=== PATIENT | male | born 1950 | race Caucasian/White ===

== ENCOUNTER 2017-04-27 07:58 | Outpatient (CLI) | payer MEDICARE ==
--- NOTE | 2017-04-27 15:39 | Ultrasound Report ---
LIMITED RETROPERITONEAL ULTRASOUND: 04/27/2017 CLINICAL INDICATION: Abdominal aortic aneurysm. COMPARISON: Report of previous ultrasound from [place], [place] dated 02/29/2016. TECHNIQUE: Real-time scanning was performed with apparel trimmings sales representative static images obtained. FINDINGS: The abdominal aorta measures 2.6 cm proximally, 2.8 cm in the mid portion, and 2.4 cm distally. The iliacs are normal in caliber. No free fluid is present. IMPRESSION: STABLE MILD AORTIC ECTASIA, WITHOUT FRANCESCO ANEURYSMAL DILATATION. TD: 04/27/2017 15:38
== END 2017-04-27 07:59 | disposition home or self-care (01) ==
LOC: DI 07:58
PROVIDERS: ATTEND Family Medicine
DX: I77.811 Abdominal aortic ectasia (principal)
CPT/HCPCS: 76775

== ENCOUNTER 2017-05-07 08:00 | Outpatient (CLI) | payer MEDICARE ==
[2017-05-07 13:37] LABS: HB2 TOTAL 15.4 g/dL; HEMOGLOBIN A1C 0.51 g/dL; HEMOGLOBIN A1C % 5.2 % (4.6-6.2)
[2017-05-07 13:42] LABS: ALBUMIN 4.5 g/dL (3.2-5.5); ALBUMIN/GLOBULIN RATIO 1.7 (1.0-2.2); ALKALINE PHOSPHATASE 41 IU/L (42-121); ALT ALANINE AMINOTRANSFERASE 39 IU/L (10-60); AST ASPARTATE AMINOTRANSFERASE 29 IU/L (10-42); BILIRUBIN,TOTAL 0.7 mg/dL (0.2-1.0); BUN - BLOOD UREA NITROGEN 26 mg/dL (6-20); CALCIUM 9.4 mg/dL (8.5-10.3); CARBON DIOXIDE - CO2 24 mmol/L (21-32); CHLORIDE 107 mmol/L (101-111); CHOL/HDL RATIO 3.6 (<5.0); CHOLESTEROL 141 mg/dL; CREATININE 1.1 mg/dL (0.6-1.2); GFR - MDRD 67 (>89); GLUCOSE 109 mg/dL (70-100); HDL CHOLESTEROL 39 mg/dL; LDL CHOLESTEROL,CALCULATED 67 mg/dL; LDL/HDL RATIO 1.7 (<3.6); SODIUM 140 mmol/L (135-145); TOTAL PROTEIN 7.2 g/dL (6.7-8.2); VLDL CHOLESTEROL 35 mg/dL
== END 2017-05-07 08:01 | disposition home or self-care (01) ==
LOC: LAB.WCP 08:00
PROVIDERS: ATTEND Family Medicine
DX: E78.5 Hyperlipidemia, unspecified (principal); R73.09 Other abnormal glucose; I10 Essential (primary) hypertension
CPT/HCPCS: 36415; 80053; 80061; 83036; 83721; 84443

== ENCOUNTER 2017-09-14 11:24 | Emergency (ER) | payer MEDICARE ==
[2017-09-14 11:35] VITALS: BP 145/88
--- NOTE | 2017-09-14 12:05 | ED Physician Documentation ---
PD HPI ANIMAL BITE - Stated complaint Stated Complaint: DOG BITE L FOOT - Chief complaint Chief Complaint: Wound - History obtained from History obtained from: Patient - History of Present Illness Location of injury(ies): Left foot Details of the event: Dog, Bite, Pet animal, Well appearing, Immunized, Provoked (his dog was in a fight with another dog and he tried to break it up, with resultant bite from his dog into left foot. Large laceration.) Timing - onset: Today Timing - details: Abrupt onset Improved by: Rest Worsened by: Moving, Palpating Associated symptoms: No: Weakness, Numbness Contributing factors: No: Immunocompromised Similar symptoms before: Has not had sx before Recently seen: Not recently seen Review of Systems Constitutional: denies: Fever Nose: denies: Rhinorrhea / runny nose, Congestion Respiratory: denies: Cough Musculoskeletal: reports: Back pain (chronic and is scheduled for surgery this coming Wednesday.) Neurologic: denies: Focal weakness, Numbness PD PAST MEDICAL HISTORY - Past Medical History Past Medical History: No Cardiovascular: None Respiratory: None Neuro: None Endocrine/Autoimmune: None Musculoskeletal: Chronic back pain - Past Surgical History Past Surgical History: No - Present Medications Home Medications: Ambulatory Orders Medication Instructions Recorded Confirmed Amox/Clav 875/125 [Augmentin] 1 each PO BID #14 tablet 09/14/17 - Allergies Allergies/Adverse Reactions: Allergies Allergy/AdvReac Type Severity Reaction Status Date / Time No Known Drug Allergies Allergy Verified 09/14/17 11:34 - Social History Does the pt smoke?: No Smoking Status: Never smoker Does the pt drink ETOH?: No Does the pt have substance abuse?: No - Immunizations Immunizations are current?: Yes - POLST Patient has POLST: No PD ED PE NORMAL - Vitals Vital signs reviewed: Yes - General General: Alert and oriented X 3, No acute distress, Well developed/nourished - Derm Derm: Normal color, Warm and dry - Extremities Extremities: Other (left foot dorsally with large 5 cm lac over lateral MTs area. Also one lateral left foot 3 cm. Both to fatty layer/full thickness skin. But no injury seen of tendons. He can flex/ext toes and I can feel the tendons still intact in base of wound. ) - Neuro Neuro: Alert and oriented X 3, No motor deficit, No sensory deficit Results - Vitals Vitals: Vital Signs - 24 hr 09/14/17 11:32 Temperature 36.1 C L Heart Rate 81 Respiratory 18 Rate Blood Pressure 145/88 H O2 Saturation 99 Oxygen O2 Source Room air - Rads (name of study) left foot Radiology: Prelim report reviewed (small specks calcified between 3rd/4th MTs, consider bone injury from bite. No transverse fracture per se. ), EMP read contemporaneously Procedures - Laceration (location) left foot Length in cm: 8 Wound type: Irregular, Into subcut fat, Clean. No: Into muscle Neurovascular status: Sensory intact, Motor intact, Vascular intact (venous bleeding from the wound) Tendon involvement: Tendon intact. No: Tendon Injury Anesthesia: Lidocaine 2% with epi, Volume - enter cc (10) Wound Preparation: Irrigated copiously NS, Wound explored, To the base, Wound edges modified. No: FB identified Deep layer closure: Vicryl, size #-0 - enter number (4), # sutures - enter number (6) Skin layer closure: Nylon, Running, Size #-0 - enter number (4), Sutures - enter # (many) Other: Patient tolerated well, No complications, Neurovascular intact, Dressing applied, Other (augmentin given) Complexity: Intermediate PD MEDICAL DECISION MAKING - ED course Complexity details: considered differential (large tear laceration of foot, took awhile for cleaning and suturing. He will need to be gentle with minimal walking. He has back pain and less ROM there and I think crutches would worsen his back pains. ), d/w patient - Sepsis Event Vital Signs: Vital Signs - 24 hr 09/14/17 11:32 Temperature 36.1 C L Heart Rate 81 Respiratory 18 Rate Blood Pressure 145/88 H O2 Saturation 99 Oxygen O2 Source Room air Departure - Departure Disposition: 01 Home, Self Care Clinical Impression: Dog bite of left foot Qualifiers: Encounter type: initial encounter Qualified Code(s): S91.352A - Open bite, left foot, initial encounter Condition: Stable Record reviewed to determine appropriate education?: Yes Instructions: ED Laceration Ext Sutr Stap Tape Follow-Up: Richard Cruz MD [Primary Care Provider] - Prescriptions: Amox/Clav 875/125 [Augmentin] 1 each PO BID #14 tablet Comments: It is okay to wash and shower. Clean off the wound twice a day with soap and water, or peroxide and water. Apply some antibiotic ointment to it to keep it moist. Also to watch for signs of infection such as purulence, redness or increasing pain. Return to your primary care or the ER at the specified time for suture removal. Suture removal 10-12 days. Augmentin twice daily to reduce chance of infection. Recheck if signs of infection. Minimal walking on the foot while its healing initially. You should be okay for your back surgery Wednesday. Discharge Date/Time: 09/14/17 14:27
[2017-09-14] MEDS ORDERED: ACETAMINOPHEN 325 MG TABLET PO STA (12:10)
[2017-09-14] MEDS ORDERED: AMOX/CLAV 875 MG/125 MG TABLET PO STA (12:10)
[2017-09-14] MEDS ORDERED: LIDOCAINE MPF 2%-EPI 1:200000 20 ML VIAL SUBQ ONE (12:11)
--- NOTE | 2017-09-14 12:47 | XRAY Report ---
Procedure Date: 09/14/2017 Accession Number: [id number] / [id number] Procedure: XR - Foot 3 View LT CPT Code: FULL RESULT: EXAM: LEFT FOOT RADIOGRAPHY EXAM DATE: 09/14/2017 12:13 PM. CLINICAL HISTORY: Dog bite left foot. COMPARISON: None. TECHNIQUE: 3 views. FINDINGS: Bones: Focal ossifications/fragments projecting over the interspace between the proximal aspects of the third and fourth metatarsals, along adjacent cortical margin. In this setting, these are suspicious for small displaced fracture fragments. No other definite fracture demonstrated. Joints: Normal. No subluxations. Soft Tissues: Lateral foot soft tissue deformity and swelling is consistent with the history of soft tissue injury. No definite radiopaque foreign body. IMPRESSION: 1. Ossifications projecting between and along the proximal third and fourth metatarsals are suspicious for small displaced fracture fragments in this clinical setting an would suggest open fracture given the nature of the injury. 2. Lateral foot soft tissue swelling/injury. [facility]
== END 2017-09-14 14:27 | disposition home or self-care (01) ==
LOC: ED 11:24
DX: S91.352A Open bite, left foot, initial encounter (principal); W54.0XXA Bitten by dog, initial encounter
CPT/HCPCS: 12034; 73630; 99283; A9270

== ENCOUNTER 2017-09-30 08:00 | Outpatient (CLI) | payer MEDICARE ==
[2017-09-30 18:49] LABS: BASOPHILS # (AUTO) 0.1 10^3/uL (0.0-0.1); BASOPHILS % (AUTO) 0.8 %; EOSINOPHILS # (AUTO) 0.2 10^3/uL (0.0-0.7); EOSINOPHILS % (AUTO) 1.6 %; HGB - HEMOGLOBIN 12.2 g/dL (14.0-18.0); LYMPHOCYTES # (AUTO) 2.1 10^3/uL (1.5-3.5); LYMPHOCYTES % (AUTO) 19.2 %; MEAN CORPUSCULAR HEMOGLOBIN 29.7 pg (27.0-31.0); MEAN CORPUSCULAR HGB CONC 33.8 g/dL (32.0-36.0); MEAN CORPUSCULAR VOLUME 88.1 fL (80.0-94.0); MEAN PLATELET VOLUME 9.2 fL (7.4-11.4); MONOCYTES # (AUTO) 0.9 10^3/uL (0.0-1.0); MONOCYTES % (AUTO) 8.2 %; NEUTROPHILS # (AUTO) 7.8 10^3/uL (1.5-6.6); NEUTROPHILS % (AUTO) 70.2 %; PLT - PLATELET COUNT 419 10^3/uL (130-450); RED BLOOD COUNT 4.11 10^6/uL (4.70-6.10); RED CELL DISTRIBUTION WIDTH 12.8 % (12.0-15.0); WHITE BLOOD COUNT 11.1 x10^3/uL (4.8-10.8)
== END 2017-09-30 08:01 | disposition home or self-care (01) ==
LOC: LAB.WCP 08:00
PROVIDERS: ATTEND Family Medicine
DX: L08.9 Local infection of the skin and subcutaneous tissue, unspecified (principal)
CPT/HCPCS: 36415; 85025; 85651

== ENCOUNTER 2017-10-02 14:29 | Outpatient (CLI) | payer MEDICARE ==
[2017-10-02] MEDS ORDERED: GADOBUTROL 10 MMOL/10 ML VIAL ONE (14:55)
[2017-10-02] MEDS ORDERED: GADOBUTROL 10 MMOL/10 ML VIAL IVP ONE (15:43)
--- NOTE | 2017-10-02 17:13 | MRI Report ---
Procedure Date: 10/02/2017 Accession Number: [id number] / [id number] Procedure: MRI - Foot LT W/WO CPT Code: FULL RESULT: EXAM: LEFT MIDFOOT/FOREFOOT MRI WITHOUT AND WITH CONTRAST EXAM DATE: 10/02/2017 03:57 PM. CLINICAL HISTORY: Status post dog bite to the left foot. Left foot infection. COMPARISON: FOOT 3 VIEW LT 09/14/2017. TECHNIQUE: Multiplanar, multisequence T1-weighted and fluid-sensitive sequences of the midfoot/forefoot before and after administration of intravenous contrast. IV contrast: 10 cc Gadavist. Other: None. FINDINGS: Some images are degraded due to patient-related motion artifact. There is an approximately 6.2 cm proximal to distal by 4.6 cm medial to lateral by 2 cm dorsal to plantar nonenhancing subcutaneous collection at the dorsal aspect of the midfoot/forefoot. The collection is hyperintense on the T2-weighted images and isointense to slightly hyperintense on the T1-weighted images. There are a few small foci of gas within the collection. There is a puncture wound at the dorsal aspect of the midfoot/forefoot. The collection extends to the dorsal surface of the proximal third metatarsal bone. There is an approximately 1.9 x 0.8 x 0.6 cm area of subcortical marrow edema and enhancement at the dorsal central aspect of the proximal third metatarsal. There is also focal cortical defect at the dorsal proximal aspect of the third metatarsal. There is diffuse subcutaneous edema, swelling, and enhancement at the dorsal aspect of the midfoot and forefoot. Mild edema and enhancement within the extensor digitorum brevis and dorsal intraosseous muscle. Ligaments: The visualized intertarsal, intermetatarsal, and tarsometatarsal ligaments are intact. This includes the Lisfranc ligament. The visualized collateral ligaments are intact. Tendons: The flexor and extensor tendons are unremarkable. Other: No effusions. The visualized portion of the tarsal tunnel is unremarkable. No intermetatarsal bursitis. IMPRESSION: 1. An approximately 6.2 x 4.6 x 2 cm subcutaneous collection at the dorsal aspect of the midfoot/forefoot most concerning for an abscess or an infected hematoma. There are multiple foci of gas within the collection. The collection extends from the dorsal surface of the proximal third metatarsal. There is a focal cortical defect at the dorsal proximal aspect of the third metatarsal which may represent a fracture from dog bite injury or erosion from osteomyelitis. There is a 1.9 x 0.8 x 0.6 cm area of subcortical marrow edema and enhancement at the dorsal-central aspect of the proximal third metatarsal which may represent bone contusion and/or osteomyelitis. 2. Diffuse subcutaneous edema, swelling, and enhancement at the dorsal aspect of the midfoot and forefoot most suggestive of cellulitis. 3. Mild edema and enhancement within the extensor digitorum brevis and dorsal interosseous muscles which may represent inflammatory or infectious myositis. [facility] MUSCULOSKELETAL RADIOLOGY SECTION The above findings were discussed with Radha Hines by Dr. Roger Delcid at 17:13 hrs on 10/02/17.
== END 2017-10-02 14:30 | disposition home or self-care (01) ==
LOC: DI 14:29
PROVIDERS: ATTEND Family Medicine
DX: L08.9 Local infection of the skin and subcutaneous tissue, unspecified (principal)

== ENCOUNTER 2017-10-02 18:53 | Inpatient (IN) | payer MEDICARE ==
[2017-10-02] MEDS ORDERED: VANCOMYCIN INJ 2 GM in SODIUM CHLORIDE 0.9% 500 ML IV STA (19:01)
[2017-10-02] MEDS ORDERED: AMPICILLIN/SULBACTAM 3 GM in SODIUM CHLORIDE 0.9% MINIBAG 100 ML IV STA (19:01)
--- NOTE | 2017-10-02 19:22 | ED Physician Documentation ---
PD HPI LOWER EXT INJURY - Stated complaint Stated Complaint: FOOT PX - Chief complaint Chief Complaint: Ext Problem - History obtained from History obtained from: Patient - History of Present Illness PD HPI LOW EXT INJURY LOCATION: Left (He had a dog bite on the top of the left foot on October 17, he was seen here and sutured and placed on Augmentin. He developed signs of infection was seen in the office and switched to doxycycline and also had Rocephin. He had an x-ray a few days ago showing potential osteomyelitis of the third metatarsal, and also white count of 11 and a sed rate of 35. He had an MRI today showing a 6.2 x 4.6 x 2 cm subcutaneous fluid collection of the dorsal foot concerning for abscess or infected hematoma and evidence of osteomyelitis in the third metatarsal. He was sent here for further evaluation, treatment, IV antibiotics, and admission.) Review of Systems Ten Systems: 10 systems reviewed and negative Constitutional: denies: Fever, Chills Throat: reports: Reviewed and negative Cardiac: reports: Reviewed and negative Respiratory: reports: Reviewed and negative PD PAST MEDICAL HISTORY - Past Medical History Cardiovascular: None Respiratory: None Neuro: None Endocrine/Autoimmune: None Musculoskeletal: Chronic back pain - Past Surgical History Past Surgical History: No - Allergies Allergies/Adverse Reactions: Allergies Allergy/AdvReac Type Severity Reaction Status Date / Time No Known Drug Allergies Allergy Verified 10/02/17 18:58 - Social History Does the pt smoke?: No Smoking Status: Never smoker Does the pt drink ETOH?: No Does the pt have substance abuse?: No - Family History Family history: reports: Non contributory - Immunizations Immunizations are current?: Yes - POLST Patient has POLST: No PD ED PE NORMAL - Vitals Vital signs reviewed: Yes - General General: Alert and oriented X 3, No acute distress - HEENT HEENT: PERRL, EOMI - Neck Neck: Supple, no meningeal sign, No bony TTP - Cardiac Cardiac: RRR, No murmur - Respiratory Respiratory: No respiratory distress, Clear bilaterally - Abdomen Abdomen: Normal bowel sounds, Soft, Non tender - Back Back: No CVA TTP, No spinal TTP - Derm Derm: Normal color, Warm and dry - Extremities Extremities: No deformity, Other (There is a jagged macerated wound on the top of the left foot, there is a little suture material still in place which was removed during examination. He was prepped and 2 mL of bloody pus was aspirated and sent for culture. The entirety of the foot is edematous. It is not insensate and he does not have pain out of proportion to examination. In fact he declines pain medication initially.) - Neuro Neuro: Alert and oriented X 3, Normal speech Results - Vitals Vitals: Vital Signs - 24 hr 10/02/17 18:56 Temperature 36.1 C L Heart Rate 74 Respiratory 18 Rate Blood Pressure 129/72 O2 Saturation 99 Oxygen O2 Source Room air - Labs Labs: Microbiology 10/02/17 19:20 Wound Culture - Preliminary Foot - Left Laboratory Tests 10/02/17 10/02/17 10/02/17 19:02 19:02 19:18 WBC 13.4 H RBC 4.10 L Hgb 12.4 L Hct 35.7 L MCV 87.2 MCH 30.3 MCHC 34.7 RDW 13.4 Plt Count 415 MPV 8.4 Neut # (Auto) 9.3 H Lymph # (Auto) 2.9 [place] # (Auto) 0.8 Eos # (Auto) 0.2 Baso # (Auto) 0.2 H Absolute Nucleated RBC 0.01 Nucleated RBC % 0.1 ESR PT 13.2 H INR 1.2 Sodium Potassium Chloride Carbon Dioxide Anion Gap BUN Creatinine Estimated GFR (MDRD) Glucose Glycated Hemoglobin 5.3 Estim Average Glucose 105 H Calcium Total Bilirubin AST ALT Alkaline Phosphatase Total Protein Albumin Globulin Albumin/Globulin Ratio Lipase 10/02/17 10/02/17 19:18 19:18 WBC RBC Hgb Hct MCV MCH MCHC RDW Plt Count MPV Neut # (Auto) Lymph # (Auto) [place] # (Auto) Eos # (Auto) Baso # (Auto) Absolute Nucleated RBC Nucleated RBC % ESR 17 PT INR Sodium 139 Potassium 3.6 Chloride 105 Carbon Dioxide 23 Anion Gap 11.0 BUN 27 H Creatinine 1.1 Estimated GFR (MDRD) 66 L Glucose 163 H Glycated Hemoglobin Estim Average Glucose Calcium 9.2 Total Bilirubin 0.7 AST 30 ALT 42 Alkaline Phosphatase 116 Total Protein 7.6 Albumin 3.8 Globulin 3.8 Albumin/Globulin Ratio 1.0 Lipase 21 L PD MEDICAL DECISION MAKING - ED course ED course: Case was discussed by phone with the on-call orthopedist, Dr. Reaves who defers to medicine for admission and agrees with Unasyn and vancomycin to start. She agrees with me aspirating the wound to try to get some culture data. She will see him and likely taken to the OR tomorrow, n.p.o. after midnight. Call to the hospitalist for admission at 7:20 PM. - Sepsis Event Vital Signs: Vital Signs - 24 hr 10/02/17 18:56 Temperature 36.1 C L Heart Rate 74 Respiratory 18 Rate Blood Pressure 129/72 O2 Saturation 99 Oxygen O2 Source Room air Departure - Departure Disposition: [facility] DC/Xfer Clinical Impression: Osteomyelitis of foot, left, acute, Foot abscess, left Dog bite of left foot Qualifiers: Encounter type: initial encounter Qualified Code(s): S91.352A - Open bite, left foot, initial encounter Condition: Stable Discharge Date/Time: 10/02/17 21:04
[2017-10-02 19:26] LABS: BASOPHILS # (AUTO) 0.2 10^3/uL (0.0-0.1); BASOPHILS % (AUTO) 1.2 %; EOSINOPHILS # (AUTO) 0.2 10^3/uL (0.0-0.7); EOSINOPHILS % (AUTO) 1.7 %; HGB - HEMOGLOBIN 12.4 g/dL (14.0-18.0); LYMPHOCYTES # (AUTO) 2.9 10^3/uL (1.5-3.5); MEAN CORPUSCULAR HEMOGLOBIN 30.3 pg (27.0-31.0); MEAN CORPUSCULAR HGB CONC 34.7 g/dL (32.0-36.0); MEAN CORPUSCULAR VOLUME 87.2 fL (80.0-94.0); MEAN PLATELET VOLUME 8.4 fL (7.4-11.4); MONOCYTES # (AUTO) 0.8 10^3/uL (0.0-1.0); MONOCYTES % (AUTO) 5.7 %; NEUTROPHILS # (AUTO) 9.3 10^3/uL (1.5-6.6); NEUTROPHILS % (AUTO) 69.4 %; PLT - PLATELET COUNT 415 10^3/uL (130-450); RED CELL DISTRIBUTION WIDTH 13.4 % (12.0-15.0); WHITE BLOOD COUNT 13.4 x10^3/uL (4.8-10.8)
[2017-10-02] MEDS ORDERED: KETOROLAC 60 MG/2 ML VIAL IVP STA (19:33)
[2017-10-02 19:43] LABS: ALBUMIN 3.8 g/dL (3.2-5.5); ALKALINE PHOSPHATASE 116 IU/L (42-121); ALT ALANINE AMINOTRANSFERASE 42 IU/L (10-60); AST ASPARTATE AMINOTRANSFERASE 30 IU/L (10-42); BILIRUBIN,TOTAL 0.7 mg/dL (0.2-1.0); BUN - BLOOD UREA NITROGEN 27 mg/dL (6-20); CALCIUM 9.2 mg/dL (8.5-10.3); CARBON DIOXIDE - CO2 23 mmol/L (21-32); CHLORIDE 105 mmol/L (101-111); CREATININE 1.1 mg/dL (0.6-1.2); GFR - MDRD 66 (>89); GLUCOSE 163 mg/dL (70-100); LIPASE 21 U/L (22-51); SODIUM 139 mmol/L (135-145); TOTAL PROTEIN 7.6 g/dL (6.7-8.2)
[2017-10-02] MEDS ORDERED: ACETAMINOPHEN 325 MG TABLET PO PRN (19:57)
[2017-10-02] MEDS ORDERED: ONDANSETRON 4 MG/2 ML VIAL IVP PRN (19:57)
[2017-10-02] MEDS ORDERED: TEMAZEPAM 15 MG CAPSULE PO PRN (19:57)
[2017-10-02 20:25] LABS: HEMOGLOBIN A1C 0.45 g/dL; HEMOGLOBIN A1C % 5.3 % (4.6-6.2)
[2017-10-02 20:31] LABS: INR 1.2 (0.8-1.2); PT - PROTHROMBIN TIME 13.2 secs (9.9-12.6)
--- NOTE | 2017-10-02 21:02 | XRAY Report ---
Procedure Date: 10/02/2017 Accession Number: [id number] / [id number] Procedure: XR - Chest 2 View X-Ray CPT Code: 85519 FULL RESULT: EXAM: CHEST RADIOGRAPHY EXAM DATE: 10/02/2017 08:20 PM. CLINICAL HISTORY: Pre-op, osteomyelitis. COMPARISON: None. TECHNIQUE: 2 views. FINDINGS: Lungs/Pleura: No focal opacities evident. No pleural effusion. No pneumothorax. Normal volumes. Mediastinum: Normal heart size. Mild aortic tortuosity. Other: None. IMPRESSION: Unremarkable chest radiographs. [facility]
[2017-10-02 21:34] LABS: CRP - C-REACTIVE PROTEIN < 1.0 mg/dL (0-1.0)
[2017-10-02] MEDS: NS W/20 MEQ KCL 1,000 ML IV SCH (22:22)
[2017-10-02] MEDS: SODIUM CHLORIDE FLUSH 0.9% 10 ML SYRINGE IVP SCH (23:49)
[2017-10-03] MEDS: HYDROcod/ACETAM 5/325 MG TABLET PO PRN ×4 (01:03→19:50)
[2017-10-03] MEDS ORDERED: NAPROXEN 500 MG PO PRN (01:46)
[2017-10-03] MEDS: AMPICILLIN/SULBACTAM 3 GM in SODIUM CHLORIDE 0.9% MINIBAG 100 ML IV SCH ×4 (01:50→19:44)
--- NOTE | 2017-10-03 02:48 | HISTORY & PHYSICAL EXAMINATION ---
DATE OF SERVICE: 10/02/2017 Physician: Sofiya Diaz MD HISTORY OF PRESENT ILLNESS: This is a 67-year-old white male with a history of borderline diabetes with fatty liver, on metformin for about 1 year, history of hypertension on treatment, and history of recent spinal surgery for which he took baclofen and nonsteroidal anti-inflammatory medications. The patient presents with an abnormal MRI of the foot showing an abscess and osteomyelitis. The patient's foot problem began approximately 2-3 weeks ago when he was bitten by his own dog when he was trying to break up a fight between 3 of his 4 dogs by pulling on the dog's leg. The dog reacted by putting the patient's entire foot in it's mouth and biting both the dorsal and ventral surfaces. The patient was seen in this emergency room and had stabilization. He required 15 sutures on the top, 18 on the bottom of the foot, and was started on Augmentin for a course of treatment. He went to see a doctor as an outpatient for suture removal, and he was told that the wound was not healing well and that there was an abnormal smell. He was given IV antibiotics and told to return. On the second day, this was similar, and he received IV antibiotics and told to return. On the third day, this was similar. He received IV antibiotics, and an MRI was ordered which was done today. In the time between the dog bite and today's MRI, he has undergone a successful spinal surgery for lumbar disk disease. He required screws and rods and was on perioperative doxycycline for that surgery. He has had good recovery from that. The patient denies any fevers from the time of the dog bite, or chills. He had preop clearance for the low back surgery done approximately 2 months ago , including a stress test and other cardiac evaluation, and this was normal. PAST MEDICAL HISTORY 1. Borderline diabetes but on metformin treatment. 2. Hypertension, on antihypertensives. 3. Recent LS spine surgery. FAMILY HISTORY: Strong family history of heart disease in both of his parents, and his younger brother at the age of 49 6 months ago from an [place]. He has 4 children, all girls; they are healthy. No other diseases are inherited. SOCIAL HISTORY: He lives with his and is her caregiver, as she suffered a stroke. He lives with his 1 daughter and son-in-law. He is a retired program officer, retired 3 years ago. The patient stopped smoking over 30 years ago. He drinks 1 beer a day. He uses 1 cannabis a day. No other illicit drug use. ALLERGIES: NONE. MEDICATIONS None are listed at home, but by his report, he states that he takes: 1. Either carvedilol or metoprolol, he is not sure. 2. Metformin, unknown dose daily. 3. Two baby aspirin daily. 4. Nonsteroidal medicines p.r.n. pain. 5. Another pain medication for his back p.r.n. REVIEW OF SYSTEMS: Comprehensive review of systems was performed, and the pertinent positives are in the HPI, the rest are negative. PHYSICAL EXAMINATION GENERAL: White male in no distress. VITAL SIGNS: Blood pressure 136/69, pulse of 63, in sinus rhythm, afebrile, room air saturation 99%. HEENT: Unremarkable. Oral mucosa is moist. NECK: Without JVD or carotid bruits. CHEST: Clear. HEART: Sounds normal. He does have increased AP diameter. ABDOMEN: Soft with positive bowel sounds. Nontender. No organomegaly. EXTREMITIES: No clubbing, cyanosis, edema. The left forefoot is in a wrap bandage, and the left foot second, third, and fourth toes have bruising but are normal to sensation and have normal motor strength. NEUROLOGIC: Intact. LABORATORY STUDIES: Normal electrolytes. Normal BUN and creatinine. A1c is 5.3. Normal liver tests. CRP is less than 1. INR normal at 1.2. White blood count 13.4, which is up from the ER visit when it was 11. Hemoglobin is 12.4. Platelet count normal at 415. ELECTROCARDIOGRAM: Sinus bradycardia at a rate of 57, atypical right bundle branch block, no acute ST or T changes. There is no old EKG available for comparison. IMAGING: Chest x-ray was unremarkable. IMPRESSION/DIAGNOSES 1. Osteomyelitis, by outpatient MRI of his foot done today. 2. Abscess of left foot, at the site of the recent traumatic injury. 3. Open bite wound of the left foot, from a dog bite. 4. Borderline diabetes with normal A1c, on Metformin. 5. History of hypertension, on meds. PLAN The patient's revised cardiac risk index is very low, especially since he recently underwent major surgery and had preoperative testing. We will place the patient on IV fluids, n.p.o. is planned at midnight, and the Orthopedic surgeon plans to take him to surgery. The exact surgical procedure was not described to me, as to whether there will be debridement or requiring an amputation of the bone. Start carb-controlled diet, fingerstick glucose checks , and sliding scale Insulin coverage, stop metformin, as he may need CT imaging with dye. Continue with his blood pressure medications, continue with pain medications. The wound was opened, and a culture was taken in the emergency room, await cultures. Will now begin empiric IV antibiotics using Unasyn and Vancomycin, which were chosen by the ER doctor in discussion with the Orthopedic doctor. Deep venous thrombosis prophylaxis: SCDs. CODE STATUS: FULL CODE. ATTESTATION: The patient is expected to be discharged or transferred to another facility within 96 hours: Yes. TD: 10/02/2017 23:20 SAHRA
[2017-10-03] MEDS: BACLOFEN 10 MG TABLET PO SCH ×3 (05:36→21:28)
[2017-10-03 06:34] LABS: BASOPHILS # (AUTO) 0.1 10^3/uL (0.0-0.1); BASOPHILS % (AUTO) 1.2 %; EOSINOPHILS # (AUTO) 0.2 10^3/uL (0.0-0.7); HGB - HEMOGLOBIN 11.3 g/dL (14.0-18.0); LYMPHOCYTES # (AUTO) 2.3 10^3/uL (1.5-3.5); LYMPHOCYTES % (AUTO) 23.7 %; MEAN CORPUSCULAR HEMOGLOBIN 30.3 pg (27.0-31.0); MEAN CORPUSCULAR HGB CONC 34.9 g/dL (32.0-36.0); MEAN PLATELET VOLUME 8.3 fL (7.4-11.4); MONOCYTES # (AUTO) 0.7 10^3/uL (0.0-1.0); MONOCYTES % (AUTO) 7.3 %; NEUTROPHILS # (AUTO) 6.5 10^3/uL (1.5-6.6); NEUTROPHILS % (AUTO) 65.8 %; PLT - PLATELET COUNT 302 10^3/uL (130-450); RED BLOOD COUNT 3.72 10^6/uL (4.70-6.10); RED CELL DISTRIBUTION WIDTH 12.9 % (12.0-15.0); WHITE BLOOD COUNT 9.9 x10^3/uL (4.8-10.8)
[2017-10-03] MEDS: INSULIN REGULAR HUMAN 100 UNIT/1 ML 10 ML MDV SUBQ SCH ×2 (06:46→13:02)
[2017-10-03] MEDS: SODIUM CHLORIDE FLUSH 0.9% 10 ML SYRINGE IVP PRN (06:48)
[2017-10-03] MEDS: SODIUM CHLORIDE FLUSH 0.9% 10 ML SYRINGE IVP SCH ×2 (06:48→17:22)
[2017-10-03] MEDS: PANTOPRAZOLE 40 MG VIAL IVP SCH (06:48)
[2017-10-03 06:51] LABS: CALCIUM 8.6 mg/dL (8.5-10.3); CREATININE 1.2 mg/dL (0.6-1.2)
[2017-10-03] MEDS: LOSARTAN 50 MG TABLET PO SCH (08:35)
[2017-10-03] MEDS: hydroCHLOROthiazide 25 MG TABLET PO SCH (08:35)
[2017-10-03] MEDS: POLYETHYLENE GLYCOL 3350 17 GM PACKET PO SCH (08:35)
[2017-10-03] MEDS: amLODIPine 5 MG TABLET PO SCH ×2 (08:35→20:40)
[2017-10-03] MEDS: CARVEDILOL 3.125 MG TABLET PO SCH ×2 (08:35→20:40)
[2017-10-03] MEDS ORDERED: amLODIPine 5 MG TABLET PO SCH (09:00)
[2017-10-03] MEDS ORDERED: NON FORMULARY MED (Carvedilol [Carvedilol] 6.25 MG) PO SCH ×2 (09:00)
[2017-10-03] MEDS ORDERED: LOSARTAN POTASSIUM 100 MG PO SCH ×2 (09:00)
[2017-10-03 10:41] LABS: VANCOMYCIN,RANDOM 9.2 ug/mL
[2017-10-03] MEDS: VANCOMYCIN INJ 1 GM, VANCOMYCIN INJ 250 MG in SODIUM CHLORIDE 0.9% 250 ML IV SCH ×2 (10:56→21:29)
--- NOTE | 2017-10-03 12:29 | CONSULTATION NOTE ---
Referring Provider Name of Referring Provider:: Alec Consult Date: 10/03/17 Chief Complaint - Chief Complaint Chief Complaint: Infected dog bite dorsum of left foot History of Present Illness - Admitted From Admitted From:: ER - History of Present Illness HPI Comment/Other: 67 year old male was bitten by a dog on October 17. He was sutured and placed on Augmentin. He had back surgery several days ago. He now presents to the ER with purulent drainage over the dorsum of his foot. He has had an MRI which demonstrates an abscess in his foot and questionable osteomyelitis in the third metatarsal. He is here today for orthopedic evaluation. History - Past Medical History Cardiovascular: reports: None Respiratory: reports: None Neuro: reports: None Endocrine/Autoimmune: reports: None GI: reports: Hiatal hernia : reports: None HEENT: reports: None Psych: reports: None Musculoskeletal: reports: Chronic back pain Derm: reports: None MRSA Hx?: No - Past Surgical History Ortho: reports: Knee replacement, Spine surgery - POLST Patient has POLST: No Meds/Allgy - Home Medications Home Medications: Ambulatory Orders Medication Instructions Recorded Confirmed Atorvastatin Calcium [Atorvastatin 40 mg PO QPM 10/02/17 10/03/17 Calcium] Baclofen [Baclofen] 10 mg PO BID PRN 10/02/17 10/03/17 Carvedilol [Carvedilol] 6.25 mg PO BID 10/02/17 10/03/17 Losartan Potassium [Losartan 100 mg PO DAILY 10/02/17 10/03/17 Potassium] Metformin HCl [Metformin HCl] 500 mg PO BIDWM 10/02/17 10/03/17 Naproxen [Naproxen] 500 mg PO BID 10/02/17 10/03/17 amLODIPine [Norvasc] 5 mg PO BID 10/02/17 10/03/17 hydroCHLOROthiazide 25 mg PO DAILY 10/02/17 10/03/17 [Hydrochlorothiazide] oxyCODONE [Roxicodone] 5 mg PO Q6HR PRN 10/02/17 10/03/17 Aspirin 162 mg PO DAILY 10/03/17 10/03/17 - Allergies Allergies/Adverse Reactions: Allergies Allergy/AdvReac Type Severity Reaction Status Date / Time No Known Drug Allergies Allergy Verified 10/02/17 18:58 Exam - Vital Signs Vital Signs: Vital Signs x48h Temp Pulse Resp BP Pulse Ox 10/03/17 07:51 36.8 C 67 18 144/83 H 97 - Physical Exam General Appearance: positive: No acute distress Peripheral Pulses: positive: Other (Unable to fully assess secondary to wound location. Foot is warm.) Extremities: positive: Other (Foot has a moderate amount of swelling present. There is a transverse wound that is open over the dorsum of the foot. The drainage from the wound is purulent. There is no deformity noted.) Conclusion/Plan - Diagnosis Diagnosis: Abscess left foot secondary to dog bite - plan is to take him to the OR and debride and irrigate the infection, apply a wound vac and IV antibiotics. The risks involved in the surgery have been explained including continued infection. - Lab Results Fish Bones: 10/03/17 06:19 10/03/17 06:19
[2017-10-03] MEDS ORDERED: VANCOMYCIN INJ 1.5 GM in SODIUM CHLORIDE 0.9% 500 ML IV SCH (14:00)
[2017-10-03] MEDS: NS W/20 MEQ KCL 1,000 ML IV SCH (15:52)
[2017-10-03] MEDS ORDERED: AMPICILLIN/SULBACTAM 3 GM in SODIUM CHLORIDE 0.9% MINIBAG 100 ML IV SCH (16:00)
--- NOTE | 2017-10-03 16:15 | PROVIDER PROGRESS NOTE ---
Subjective - Prog Note Date Prog Note Date: 10/03/17 Prog Note Time: 11:00 - Subjective Subjective: The patient says that his pain is improved and that he is nervous about his upcoming surgery. He denies any fevers or chills, shortness of breath or chest pain. Current Medications - Current Medications Current Medications: Active Medications Generic Name Dose Route Start Last Admin Trade Name Freq PRN Reason Stop Dose Admin Acetaminophen 650 mg 10/02/17 19:57 Tylenol PO Q4HR PRN Pain or Fever > 38C (100.4F) Hydrocodone Bitart/Acetaminophen 1 tab 10/02/17 19:57 10/03/17 12:11 [place] 5/325 PO 1 tab Q4HR PRN Administration Pain 5 to 7 Amlodipine Besylate 5 mg 10/03/17 09:00 10/03/17 08:35 Norvasc PO 5 mg BID CHINYERE Administration Baclofen 10 mg 10/03/17 06:00 10/03/17 14:28 Lioresal PO 10 mg TID CHINYERE Administration Carvedilol 6.25 mg 10/03/17 09:00 10/03/17 08:35 Coreg PO 6.25 mg BID CHINYERE Administration Hydrochlorothiazide 25 mg 10/03/17 09:00 10/03/17 08:35 Hydrodiuril PO 25 mg DAILY CHINYERE Administration Hydromorphone HCl 0.5 mg 10/02/17 19:57 Dilaudid Inj Syringe IVP Q2H PRN Pain 8 to 10 Potassium Chloride/Sodium Chloride 1,000 mls @ 75 mls/hr 10/02/17 20:00 10/03 15:52 Normal Saline 0.9% W/20 Meq Kcl IV 75 mls/hr .[id number] CHINYERE Administration Ampicillin Sodium/Sulbactam 100 mls @ 200 mls/hr 10/03/17 02:00 10/03/17 14: 53 Sodium 3 gm/ Sodium Chloride IV Infused Q6H CH[facility]YERE Infusion Vancomycin HCl 1 gm/ 280 mls @ 187 mls/hr 10/03/17 10:00 10/03/17 12:20 Vancomycin HCl 250 mg/ Sodium IV Infused Chloride Q12H CHINYERE Infusion Insulin Human Regular 1 - 5 unit 10/03/17 06:00 10/03/17 13:02 Novolin R SUBQ Not Given Q6HR CHINYERE Protocol Losartan Potassium 100 mg 10/03/17 09:00 10/03/17 08:35 Cozaar PO 100 mg DAILY CHINYERE Administration Naproxen 500 mg 10/03/17 02:16 Naprosyn PO BID PRN PAIN Ondansetron HCl 4 mg 10/02/17 19:57 Zofran Inj IVP Q6HR PRN Nausea / Vomiting Pantoprazole Sodium 40 mg 10/03/17 07:00 10/03/17 06:48 Protonix IVP 40 mg QDAC CHINYERE Administration Polyethylene Glycol 17 gm 10/03/17 09:00 10/03/17 08:35 Miralax PO Not Given DAILY CHINYERE Sodium Chloride 10 ml 10/02/17 19:57 10/03/17 06:48 Normal Saline Flush 0.9% IVP 10 ml PRN PRN Administration NEEDED PER PROVIDER ORDERS Sodium Chloride 10 ml 10/03/17 01:00 10/03/17 06:48 Normal Saline Flush 0.9% IVP 10 ml [id number] CHINYERE Administration Temazepam 15 mg 10/02/17 19:57 Restoril PO QPM PRN Insomnia Atorvastatin Calcium [Atorvastatin Calcium] 40 mg PO QPM 10/02/17 Baclofen [Baclofen] 10 mg PO BID PRN 10/02/17 Carvedilol [Carvedilol] 6.25 mg PO BID 10/02/17 Losartan Potassium [Losartan Potassium] 100 mg PO DAILY 10/02/17 Metformin HCl [Metformin HCl] 500 mg PO BIDWM 10/02/17 Naproxen [Naproxen] 500 mg PO BID 10/02/17 amLODIPine [Norvasc] 5 mg PO BID 10/02/17 hydroCHLOROthiazide [Hydrochlorothiazide] 25 mg PO DAILY 10/02/17 oxyCODONE [Roxicodone] 5 mg PO Q6HR PRN 10/02/17 Aspirin 162 mg PO DAILY 10/03/17 Objective - Vital Signs/Intake & Output Reviewed Vital Signs: Yes Vital Signs: Last Vital Signs Temp 36.8 C 10/03/17 07:51 Pulse 67 10/03/17 07:51 Resp 18 10/03/17 07:51 BP 144/83 H 10/03/17 07:51 Pulse Ox 97 10/03/17 07:51 Intake & Output: Intake & Output 09/30/17 10/01/17 10/02/17 10/03/17 23:59 23:59 23:59 23:59 Intake Total 900 1880 Output Total 1600 Balance 900 280 - Objective General Appearance: positive: No acute distress, Alert Eyes Bilateral: positive: Normal inspection, PERRL, EOMI, No lid inflammation, Conjunctivae nml, No scleral icterus ENT: positive: ENT inspection nml, Pharynx nml, No signs of dehydration Neck: positive: Nml inspection, Thyroid nml, No JVD, Trachea midline. negative : Thyromegaly Respiratory: positive: Chest non-tender, No respiratory distress, Breath sounds nml. negative: Wheezes, Rales, Rhonchi Cardiovascular: positive: Regular rate & rhythm, No murmur, No gallop Abdomen: positive: Non-tender, No organomegaly, Nml bowel sounds, No distention. negative: Guarding, Rebound Back: positive: Nml inspection. negative: CVA tenderness (R), CVA tenderness (L ) Skin: positive: Color nml, No rash, Warm, Dry. negative: Cyanosis Extremities: positive: Full ROM, Other (The patient has sutures and swelling to his right foot, To the sole and the dorsum) Neurologic/Psychiatric: positive: Oriented x3, CN's nml (2-12), Motor nml, Sensation nml, Mood/affect nml - Lab Results Fish Bones: 10/03/17 06:19 10/03/17 06:19 Other Labs: Lab Results x24hrs 10/03/17 10/03/17 10/03/17 Range/Units 11:11 10:20 06:19 WBC (4.8-10.8) x10^3/uL RBC (4.70-6.10) 10^6/uL Hgb (14.0-18.0) g/dL Hct (42.0-52.0) % MCV (80.0-94.0) fL MCH (27.0-31.0) pg MCHC (32.0-36.0) g/dL RDW (12.0-15.0) % Plt Count (130-450) 10^3/uL MPV (7.4-11.4) fL Neut # (Auto) (1.5-6.6) 10^3/uL Lymph # (Auto) (1.5-3.5) 10^3/uL [place] # (Auto) (0.0-1.0) 10^3/uL Eos # (Auto) (0.0-0.7) 10^3/uL Baso # (Auto) (0.0-0.1) 10^3/uL Absolute Nucleated RBC x10^3/uL Nucleated RBC % /100WBC Sodium (135-145) mmol/L Potassium (3.5-5.0) mmol/L Chloride (101-111) mmol/L Carbon Dioxide (21-32) mmol/L Anion Gap (6-13) BUN (6-20) mg/dL Creatinine (0.6-1.2) mg/dL Estimated GFR (MDRD) (>89) Glucose (70-100) mg/dL POC Whole Bld Glucose 100 94 (70 - 100) mg/dL Calcium (8.5-10.3) mg/dL Last Dose Date 10/02/17 Last Dose Time 2100 Random Vancomycin 9.2 ug/mL 10/03/17 10/03/17 Range/Units 06:19 06:19 WBC 9.9 (4.8-10.8) x10^3/uL RBC 3.72 L (4.70-6.10) 10^6/uL Hgb 11.3 L (14.0-18.0) g/dL Hct 32.4 L (42.0-52.0) % MCV 87.0 (80.0-94.0) fL MCH 30.3 (27.0-31.0) pg MCHC 34.9 (32.0-36.0) g/dL RDW 12.9 (12.0-15.0) % Plt Count 302 (130-450) 10^3/uL MPV 8.3 (7.4-11.4) fL Neut # (Auto) 6.5 (1.5-6.6) 10^3/uL Lymph # (Auto) 2.3 (1.5-3.5) 10^3/uL [place] # (Auto) 0.7 (0.0-1.0) 10^3/uL Eos # (Auto) 0.2 (0.0-0.7) 10^3/uL Baso # (Auto) 0.1 (0.0-0.1) 10^3/uL Absolute Nucleated RBC 0.00 x10^3/uL Nucleated RBC % 0.0 /100WBC Sodium 140 (135-145) mmol/L Potassium 3.7 (3.5-5.0) mmol/L Chloride 107 (101-111) mmol/L Carbon Dioxide 25 (21-32) mmol/L Anion Gap 8.0 (6-13) BUN 25 H (6-20) mg/dL Creatinine 1.2 (0.6-1.2) mg/dL Estimated GFR (MDRD) 60 L (>89) Glucose 103 H (70-100) mg/dL POC Whole Bld Glucose (70 - 100) mg/dL Calcium 8.6 (8.5-10.3) mg/dL Last Dose Date Last Dose Time Random Vancomycin ug/mL - Diagnostic Imaging Diagnostic Imaging Results: positive: Final report reviewed Diagnostic Imaging Comments: EXAM: Foot 3 View LT DATE: 09/30/2017 2:04 PM CLINICAL HISTORY: FOOT INFECTION COMPARISON: 09/14/2017. TECHNIQUE: 3 views. FINDINGS: Fracture with fragmentation of the base of the third metatarsal and questionably fracture of the fourth metatarsal is redemonstrated. Given history of dog bite as the etiology combined with current history of ongoing foot infection this is suspicious for osteomyelitis. IMPRESSION: Findings suspicious for osteomyelitis as described. Recommend evaluation by MRI for consideration of IV antibiotic therapy with or without surgical management. This was discussed over the phone at 3:[address] Cruz. EXAM: LEFT MIDFOOT/FOREFOOT MRI WITHOUT AND WITH CONTRAST EXAM DATE: 10/02/2017 03:57 PM. CLINICAL HISTORY: Status post dog bite to the left foot. Left foot infection. COMPARISON: FOOT 3 VIEW LT 09/14/2017. TECHNIQUE: Multiplanar, multisequence T1-weighted and fluid-sensitive sequences of the midfoot/forefoot before and after administration of intravenous contrast. IV contrast: 10 cc Gadavist. Other: None. FINDINGS: Some images are degraded due to patient-related motion artifact. There is an approximately 6.2 cm proximal to distal by 4.6 cm medial to lateral by 2 cm dorsal to plantar nonenhancing subcutaneous collection at the dorsal aspect of the midfoot/forefoot. The collection is hyperintense on the T2-weighted images and isointense to slightly hyperintense on the T1-weighted images. There are a few small foci of gas within the collection. There is a puncture wound at the dorsal aspect of the midfoot/forefoot. The collection extends to the dorsal surface of the proximal third metatarsal bone. There is an approximately 1.9 x 0.8 x 0.6 cm area of subcortical marrow edema and enhancement at the dorsal central aspect of the proximal third metatarsal. There is also focal cortical defect at the dorsal proximal aspect of the third metatarsal. There is diffuse subcutaneous edema, swelling, and enhancement at the dorsal aspect of the midfoot and forefoot. Mild edema and enhancement within the extensor digitorum brevis and dorsal intraosseous muscle. Ligaments: The visualized intertarsal, intermetatarsal, and tarsometatarsal ligaments are intact. This includes the Lisfranc ligament. The visualized collateral ligaments are intact. Tendons: The flexor and extensor tendons are unremarkable. Other: No effusions. The visualized portion of the tarsal tunnel is unremarkable. No intermetatarsal bursitis. IMPRESSION: 1. An approximately 6.2 x 4.6 x 2 cm subcutaneous collection at the dorsal aspect of the midfoot/forefoot most concerning for an abscess or an infected hematoma. There are multiple foci of gas within the collection. The collection extends from the dorsal surface of the proximal third metatarsal. There is a focal cortical defect at the dorsal proximal aspect of the third metatarsal which may represent a fracture from dog bite injury or erosion from osteomyelitis. There is a 1.9 x 0.8 x 0.6 cm area of subcortical marrow edema and enhancement at the dorsal-central aspect of the proximal third metatarsal which may represent bone contusion and/or osteomyelitis. 2. Diffuse subcutaneous edema, swelling, and enhancement at the dorsal aspect of the midfoot and forefoot most suggestive of cellulitis. 3. Mild edema and enhancement within the extensor digitorum brevis and dorsal interosseous muscles which may represent inflammatory or infectious myositis. EXAM: CHEST RADIOGRAPHY EXAM DATE: 10/02/2017 08:20 PM. CLINICAL HISTORY: Pre-op, osteomyelitis. COMPARISON: None. TECHNIQUE: 2 views. FINDINGS: Lungs/Pleura: No focal opacities evident. No pleural effusion. No pneumothorax. Normal volumes. Mediastinum: Normal heart size. Mild aortic tortuosity. Other: None. IMPRESSION: Unremarkable chest radiographs. ABX Reporting Has patient been on IV antibiotics over the past 48 hours?: Yes Assessment/Plan - Problem List (1) Cellulitis of foot, left Impression: According to Dr. Reaves, the orthopedic surgeon who is attending to Mr. Bailey, there is some question as to whether or not there is osteoarthritis osteomyelitis in the foot. Despite this, given that there is at least a fracture in the wound has been infected for a lengthy amount of time, we will treat the patient with 6 weeks of IV antibiotics following the surgical debridement today. Accordingly, I will ask that the anesthesiologist place a PICC line during the patient's surgery today, if possible. (2) Hypertension Impression: The patient has a history of hypertension and takes amlodipine, carvedilol, and losartan at home. We will continue these while he is inpatient. (3) Hyperlipidemia Impression: The patient has a history of hyperlipidemia and takes atorvastatin at home. We will continue this while he is inpatient. (4) Type 2 diabetes mellitus Impression: The patient has what he terms as "borderline diabetes" and takes metformin, 500 mg twice a day at home. I will cover him with a sliding scale, place him on a carb controlled diet, and check his hemoglobin A1c while he is in the hospital but otherwise we will not make any changes and will not start the metformin while he is hospitalized.
[2017-10-03] MEDS ORDERED: VANCOMYCIN PER PHARMACY 0.1 GM in SODIUM CHLORIDE 0.9% 250 ML IV SCH (17:00)
[2017-10-03] MEDS ORDERED: LACTATED RINGERS 1,000 ML IV ONE ×2 (17:05→18:44)
[2017-10-03 17:07] LABS: HB2 TOTAL 11.4 g/dL; HEMOGLOBIN A1C 0.38 g/dL; HEMOGLOBIN A1C % 5.2 % (4.6-6.2)
[2017-10-03] MEDS ORDERED: PROPOFOL 200 MG/20 ML VIAL IVP ONE (17:30)
[2017-10-03] MEDS ORDERED: fentaNYL 100 MCG/2 ML VIAL IVP ONE (17:30)
[2017-10-03] MEDS ORDERED: MIDAZOLAM 2 MG/2 ML VIAL IVP ONE (17:30)
[2017-10-03] MEDS ORDERED: ONDANSETRON 4 MG/2 ML VIAL IVP ONE (17:30)
[2017-10-03] MEDS ORDERED: KETOROLAC 30 MG/ML VIAL IVP ONE (17:30)
[2017-10-03] MEDS ORDERED: DEXAMETHASONE 4 MG/ML VIAL IVP ONE (17:30)
[2017-10-03] MEDS ORDERED: LIDOCAINE-MPF 2% 5 ML VIAL IM ONE (17:30)
--- NOTE | 2017-10-03 18:06 | OPERATIVE REPORT ---
Operative Report - General Admit Date: 10/02/17 Procedure Date: 10/03/17 Planned Procedure: debridement and irrigation left foot abscess, application of wound vac Pre-Op Diagnosis: dog bite left foot with abscess and osteomyelitis Procedure Performed: Debridement and irrigation left foot, application of wound vac left foot Operative procedure in detail: The patient was taken to the operating room and general anesthesia was induced. A longitudinal incision was placed over the third metatarsal. The transverse wound that was already present was explored. There was approximately 10 cc of purulent material that was removed. Cultures were obtained. The wound was digitally explored. A currette was inserted into the bone of the third metatarsal. No purulent material was noted around the fracture site. The skin was debrided. The SpotMeulse irrigation system was used to irrigate the patient's wound. Four liters of NS was used. The wound vac was then put into place. We loosely closed the skin with a vertical mattress suture of 4.0 nylon. The wound vac motor was attached and no leaks were noted. The patient was then awakened and returned to the in stable condition. All sponge and needle counts were correct x 2. - Procedure Note Primary Surgeon: Jean Paul Anesthesia Technique: General LMA Pathology: Cultures were obtained Estimated Blood Loss (mL): 10 Drain/Tube Type: Other (Wound vac) Complications: None
[2017-10-03] MEDS: HYDROmorphone 1 MG/ML CARPUJECT ONE ×2 (18:18→18:25)
[2017-10-03] MEDS: HYDROmorphone 0.5 MG/0.5 ML SYRINGE IVP PRN ×2 (18:20→22:59)
[2017-10-03] MEDS: fentaNYL 100 MCG/2 ML VIAL ONE ×4 (18:31→18:48)
[2017-10-03] MEDS: INSULIN ASPART 300 UNIT/3 ML PEN SUBQ SCH ×2 (20:00→21:45)
[2017-10-03] MEDS: NAPROXEN 250 MG TABLET PO PRN (22:59)
[2017-10-04] MEDS: SODIUM CHLORIDE FLUSH 0.9% 10 ML SYRINGE IVP SCH ×3 (00:34→17:09)
[2017-10-04] MEDS: AMPICILLIN/SULBACTAM 3 GM in SODIUM CHLORIDE 0.9% MINIBAG 100 ML IV SCH ×4 (01:53→19:06)
[2017-10-04 05:53] LABS: BASOPHILS % (AUTO) 0.2 %; LYMPHOCYTES # (AUTO) 1.3 10^3/uL (1.5-3.5); LYMPHOCYTES % (AUTO) 9.2 %; MEAN CORPUSCULAR HEMOGLOBIN 30.1 pg (27.0-31.0); MEAN CORPUSCULAR HGB CONC 34.4 g/dL (32.0-36.0); MEAN CORPUSCULAR VOLUME 87.6 fL (80.0-94.0); MEAN PLATELET VOLUME 8.4 fL (7.4-11.4); MONOCYTES # (AUTO) 0.5 10^3/uL (0.0-1.0); MONOCYTES % (AUTO) 3.9 %; NEUTROPHILS # (AUTO) 12.1 10^3/uL (1.5-6.6); NEUTROPHILS % (AUTO) 86.7 %; PLT - PLATELET COUNT 338 10^3/uL (130-450); RED BLOOD COUNT 3.98 10^6/uL (4.70-6.10); RED CELL DISTRIBUTION WIDTH 13.1 % (12.0-15.0); WHITE BLOOD COUNT 13.9 x10^3/uL (4.8-10.8)
[2017-10-04 06:06] LABS: CALCIUM 8.7 mg/dL (8.5-10.3); CREATININE 1.1 mg/dL (0.6-1.2)
[2017-10-04] MEDS ORDERED: SODIUM CHLORIDE FLUSH 0.9% 10 ML SYRINGE ONE (06:28)
[2017-10-04] MEDS: PANTOPRAZOLE 40 MG VIAL IVP SCH (06:33)
[2017-10-04] MEDS: SODIUM CHLORIDE FLUSH 0.9% 10 ML SYRINGE IVP PRN (06:33)
[2017-10-04] MEDS: BACLOFEN 10 MG TABLET PO SCH ×3 (06:33→21:04)
[2017-10-04] MEDS: POLYETHYLENE GLYCOL 3350 17 GM PACKET PO SCH (07:30)
[2017-10-04] MEDS: INSULIN ASPART 300 UNIT/3 ML PEN SUBQ SCH ×4 (07:30→21:04)
[2017-10-04] MEDS: LOSARTAN 50 MG TABLET PO SCH (08:33)
[2017-10-04] MEDS: CARVEDILOL 3.125 MG TABLET PO SCH ×2 (08:33→20:00)
[2017-10-04] MEDS: amLODIPine 5 MG TABLET PO SCH ×2 (08:34→20:00)
[2017-10-04] MEDS: hydroCHLOROthiazide 25 MG TABLET PO SCH (09:28)
[2017-10-04 09:31] LABS: BILIRUBIN,URINE NEGATIVE (NEGATIVE); GLUCOSE, URINE (UA) NEGATIVE (NEGATIVE); KETONES,URINE (UA) NEGATIVE (NEGATIVE); LEUKOCYTE ESTERASE, URINE NEGATIVE (NEGATIVE); NITRITE,URINE NEGATIVE (NEGATIVE); OCCULT BLOOD,URINE NEGATIVE (NEGATIVE); PROTEIN,URINE NEGATIVE (NEGATIVE); UROBILINOGEN,URINE 0.2 (NORMAL) E.U./dL (NORMAL)
[2017-10-04 09:34] LABS: CLARITY,URINE CLEAR (CLEAR)
[2017-10-04] MEDS: VANCOMYCIN INJ 1 GM, VANCOMYCIN INJ 250 MG in SODIUM CHLORIDE 0.9% 250 ML IV SCH ×2 (10:24→21:49)
--- NOTE | 2017-10-04 11:59 | PROVIDER PROGRESS NOTE ---
Subjective - Prog Note Date Prog Note Date: 10/04/17 Prog Note Time: 11:55 - Subjective Pt reports feeling: Improved Subjective: Patient says the pain in his foot is extremely well-managed. He denies any significant pain, shortness of breath, fevers or chills. He is eating and has not yet moved his bowels since his surgery. Current Medications - Current Medications Current Medications: Active Medications Generic Name Dose Route Start Last Admin Trade Name Freq PRN Reason Stop Dose Admin Acetaminophen 650 mg 10/02/17 19:57 Tylenol PO Q4HR PRN Pain or Fever > 38C (100.4F) Hydrocodone Bitart/Acetaminophen 1 tab 10/02/17 19:57 10/03/17 19:50 [place] 5/325 PO 1 tab Q4HR PRN Administration Pain 5 to 7 Amlodipine Besylate 5 mg 10/03/17 09:00 10/04/17 08:34 Norvasc PO 5 mg BID CH[facility]ERE Administration Baclofen 10 mg 10/03/17 06:00 10/04/17 06:33 Lioresal PO 10 mg TID CH[facility]ERE Administration Carvedilol 6.25 mg 10/03/17 09:00 10/04/17 08:33 Coreg PO 6.25 mg BID CH[facility]ERE Administration Hydrochlorothiazide 25 mg 10/03/17 09:00 10/04/17 09:28 Hydrodiuril PO 25 mg DAILY [facility]ERE Administration Hydromorphone HCl 0.5 mg 10/02/17 19:57 10/03/17 22:59 Dilaudid Inj Syringe IVP 0.5 mg Q2H PRN Administration Pain 8 to 10 Potassium Chloride/Sodium Chloride 1,000 mls @ 75 mls/hr 10/02/17 20:00 10/04 09:33 Normal Saline 0.9% W/20 Meq Kcl IV Infused .[id number] [facility] Infusion Ampicillin Sodium/Sulbactam 100 mls @ 200 mls/hr 10/03/17 02:00 10/04/17 09: 34 Sodium 3 gm/ Sodium Chloride IV Infused Q6H [facility] Infusion Vancomycin HCl 1 gm/ 280 mls @ 187 mls/hr 10/03/17 10:00 10/04/17 10:24 Vancomycin HCl 250 mg/ Sodium IV 187 mls/hr Chloride Q12H [facility] Administration Insulin Aspart 1 - 9 unit 10/03/17 17:00 10/04/17 07:30 Novolog SUBQ Not Given 0800,1200,1700,2100 [facility] Protocol Losartan Potassium 100 mg 10/03/17 09:00 10/04/17 08:33 Cozaar PO 100 mg DAILY [facility] Administration Naproxen 500 mg 10/03/17 02:16 10/03/17 22:59 Naprosyn PO 500 mg BID PRN Administration PAIN Ondansetron HCl 4 mg 10/02/17 19:57 Zofran Inj IVP Q6HR PRN Nausea / Vomiting Pantoprazole Sodium 40 mg 10/03/17 07:00 10/04/17 06:33 Protonix IVP 40 mg QDAC [facility] Administration Polyethylene Glycol 17 gm 10/03/17 09:00 10/04/17 07:30 Miralax PO 17 gm DAILY [facility] Administration Sodium Chloride 10 ml 10/02/17 19:57 10/04/17 06:33 Normal Saline Flush 0.9% IVP 10 ml PRN PRN Administration NEEDED PER PROVIDER ORDERS Sodium Chloride 10 ml 10/03/17 01:00 10/04/17 09:29 Normal Saline Flush 0.9% IVP Not Given 0100,0900,1700 [facility] Temazepam 15 mg 10/02/17 19:57 Restoril PO QPM PRN Insomnia Atorvastatin Calcium [Atorvastatin Calcium] 40 mg PO QPM 10/02/17 Baclofen [Baclofen] 10 mg PO BID PRN 10/02/17 Carvedilol [Carvedilol] 6.25 mg PO BID 10/02/17 Losartan Potassium [Losartan Potassium] 100 mg PO DAILY 10/02/17 Metformin HCl [Metformin HCl] 500 mg PO BIDWM 10/02/17 Naproxen [Naproxen] 500 mg PO BID 10/02/17 amLODIPine [Norvasc] 5 mg PO BID 10/02/17 hydroCHLOROthiazide [Hydrochlorothiazide] 25 mg PO DAILY 10/02/17 oxyCODONE [Roxicodone] 5 mg PO Q6HR PRN 10/02/17 Aspirin 162 mg PO DAILY 10/03/17 Objective - Vital Signs/Intake & Output Reviewed Vital Signs: Yes Vital Signs: Vital Signs x48h Temp Pulse Resp BP Pulse Ox 10/04/17 08:00 36.9 C 74 18 144/71 H 97 Intake & Output: Intake & Output 10/01/17 10/02/17 10/03/17 10/04/17 23:59 23:59 23:59 23:59 Intake Total 900 6640 1636 Output Total 1999 875 Balance 900 631 761 - Objective General Appearance: positive: No acute distress, Alert Eyes Bilateral: positive: Normal inspection, PERRL, EOMI, No lid inflammation, Conjunctivae nml, No scleral icterus ENT: positive: ENT inspection nml, Pharynx nml, No signs of dehydration Neck: positive: Nml inspection, Thyroid nml, No JVD, Trachea midline. negative : Thyromegaly Respiratory: positive: Chest non-tender, No respiratory distress, Breath sounds nml. negative: Wheezes, Rales, Rhonchi Cardiovascular: positive: Regular rate & rhythm, No murmur, No gallop Abdomen: positive: Non-tender, No organomegaly, Nml bowel sounds, No distention. negative: Guarding, Rebound Back: positive: Nml inspection. negative: CVA tenderness (R), CVA tenderness (L ) Skin: positive: Color nml, No rash, Warm, Dry. negative: Cyanosis Extremities: positive: Full ROM, No pedal edema, Other (Patient is status post left foot surgical debridement with wound VAC placement. His toes are warm and he has capillary refill of less than 3 seconds distal to the surgical site.). negative: Calf tenderness, Joint swelling - Lab Results Fish Bones: 10/04/17 05:37 10/04/17 05:37 Other Labs: Lab Results x24hrs 10/04/17 10/04/17 10/04/17 Range/Units 11:38 07:45 07:26 WBC (4.8-10.8) x10^3/uL RBC (4.70-6.10) 10^6/uL Hgb (14.0-18.0) g/dL Hct (42.0-52.0) % MCV (80.0-94.0) fL MCH (27.0-31.0) pg MCHC (32.0-36.0) g/dL RDW (12.0-15.0) % Plt Count (130-450) 10^3/uL MPV (7.4-11.4) fL Neut # (Auto) (1.5-6.6) 10^3/uL Lymph # (Auto) (1.5-3.5) 10^3/uL [place] # (Auto) (0.0-1.0) 10^3/uL Eos # (Auto) (0.0-0.7) 10^3/uL Baso # (Auto) (0.0-0.1) 10^3/uL Absolute Nucleated RBC x10^3/uL Nucleated RBC % /100WBC Sodium (135-145) mmol/L Potassium (3.5-5.0) mmol/L Chloride (101-111) mmol/L Carbon Dioxide (21-32) mmol/L Anion Gap (6-13) BUN (6-20) mg/dL Creatinine (0.6-1.2) mg/dL Estimated GFR (MDRD) (>89) Glucose (70-100) mg/dL POC Whole Bld Glucose 126 H 120 H (70 - 100) mg/dL Glycated Hemoglobin (4.6-6.2) % Estim Average Glucose (70-100) Calcium (8.5-10.3) mg/dL Urine Color YELLOW Urine Clarity CLEAR (CLEAR) Urine pH 6.0 (5.0-7.5) PH Ur Specific [place] 1.010 (1.002-1.030) Urine Protein NEGATIVE (NEGATIVE) mg/dL Urine Glucose (UA) NEGATIVE (NEGATIVE) mg/dL Urine Ketones NEGATIVE (NEGATIVE) mg/dL Urine Occult Blood NEGATIVE (NEGATIVE) Urine Nitrite NEGATIVE (NEGATIVE) Urine Bilirubin NEGATIVE (NEGATIVE) Urine Urobilinogen 0.2 (NORMAL) (NORMAL) E.U./dL Ur Leukocyte Esterase NEGATIVE (NEGATIVE) Ur Microscopic Review NOT INDICATED Urine Culture Comments NOT INDICATED 10/04/17 10/04/17 10/03/17 Range/Units 05:37 05:37 21:39 WBC 13.9 H (4.8-10.8) x10^3/uL RBC 3.98 L (4.70-6.10) 10^6/uL Hgb 12.0 L (14.0-18.0) g/dL Hct 34.9 L (42.0-52.0) % MCV 87.6 (80.0-94.0) fL MCH 30.1 (27.0-31.0) pg MCHC 34.4 (32.0-36.0) g/dL RDW 13.1 (12.0-15.0) % Plt Count 338 (130-450) 10^3/uL MPV 8.4 (7.4-11.4) fL Neut # (Auto) 12.1 H (1.5-6.6) 10^3/uL Lymph # (Auto) 1.3 L (1.5-3.5) 10^3/uL [place] # (Auto) 0.5 (0.0-1.0) 10^3/uL Eos # (Auto) 0.0 (0.0-0.7) 10^3/uL Baso # (Auto) 0.0 (0.0-0.1) 10^3/uL Absolute Nucleated RBC 0.01 x10^3/uL Nucleated RBC % 0.1 /100WBC Sodium 139 (135-145) mmol/L Potassium 4.1 (3.5-5.0) mmol/L Chloride 107 (101-111) mmol/L Carbon Dioxide 24 (21-32) mmol/L Anion Gap 8.0 (6-13) BUN 17 (6-20) mg/dL Creatinine 1.1 (0.6-1.2) mg/dL Estimated GFR (MDRD) 66 L (>89) Glucose 130 H (70-100) mg/dL POC Whole Bld Glucose 149 H (70 - 100) mg/dL Glycated Hemoglobin (4.6-6.2) % Estim Average Glucose (70-100) Calcium 8.7 (8.5-10.3) mg/dL Urine Color Urine Clarity (CLEAR) Urine pH (5.0-7.5) PH Ur Specific [place] (1.002-1.030) Urine Protein (NEGATIVE) mg/dL Urine Glucose (UA) (NEGATIVE) mg/dL Urine Ketones (NEGATIVE) mg/dL Urine Occult Blood (NEGATIVE) Urine Nitrite (NEGATIVE) Urine Bilirubin (NEGATIVE) Urine Urobilinogen (NORMAL) E.U./dL Ur Leukocyte Esterase (NEGATIVE) Ur Microscopic Review Urine Culture Comments 10/03/17 10/03/17 Range/Units 19:34 06:19 WBC (4.8-10.8) x10^3/uL RBC (4.70-6.10) 10^6/uL Hgb (14.0-18.0) g/dL Hct (42.0-52.0) % MCV (80.0-94.0) fL MCH (27.0-31.0) pg MCHC (32.0-36.0) g/dL RDW (12.0-15.0) % Plt Count (130-450) 10^3/uL MPV (7.4-11.4) fL Neut # (Auto) (1.5-6.6) 10^3/uL Lymph # (Auto) (1.5-3.5) 10^3/uL [place] # (Auto) (0.0-1.0) 10^3/uL Eos # (Auto) (0.0-0.7) 10^3/uL Baso # (Auto) (0.0-0.1) 10^3/uL Absolute Nucleated RBC x10^3/uL Nucleated RBC % /100WBC Sodium (135-145) mmol/L Potassium (3.5-5.0) mmol/L Chloride (101-111) mmol/L Carbon Dioxide (21-32) mmol/L Anion Gap (6-13) BUN (6-20) mg/dL Creatinine (0.6-1.2) mg/dL Estimated GFR (MDRD) (>89) Glucose (70-100) mg/dL POC Whole Bld Glucose 98 (70 - 100) mg/dL Glycated Hemoglobin 5.2 (4.6-6.2) % Estim Average Glucose 103 H (70-100) Calcium (8.5-10.3) mg/dL Urine Color Urine Clarity (CLEAR) Urine pH (5.0-7.5) PH Ur Specific [place] (1.002-1.030) Urine Protein (NEGATIVE) mg/dL Urine Glucose (UA) (NEGATIVE) mg/dL Urine Ketones (NEGATIVE) mg/dL Urine Occult Blood (NEGATIVE) Urine Nitrite (NEGATIVE) Urine Bilirubin (NEGATIVE) Urine Urobilinogen (NORMAL) E.U./dL Ur Leukocyte Esterase (NEGATIVE) Ur Microscopic Review Urine Culture Comments - Diagnostic Imaging Diagnostic Imaging Results: positive: Final report reviewed Diagnostic Imaging Comments: EXAM: Foot 3 View LT DATE: 09/30/2017 2:04 PM CLINICAL HISTORY: FOOT INFECTION COMPARISON: 09/14/2017. TECHNIQUE: 3 views. FINDINGS: Fracture with fragmentation of the base of the third metatarsal and questionably fracture of the fourth metatarsal is redemonstrated. Given history of dog bite as the etiology combined with current history of ongoing foot infection this is suspicious for osteomyelitis. IMPRESSION: Findings suspicious for osteomyelitis as described. Recommend evaluation by MRI for consideration of IV antibiotic therapy with or without surgical management. This was discussed over the phone at 3:[address] Cruz. EXAM: LEFT MIDFOOT/FOREFOOT MRI WITHOUT AND WITH CONTRAST EXAM DATE: 10/02/2017 03:57 PM. CLINICAL HISTORY: Status post dog bite to the left foot. Left foot infection. COMPARISON: FOOT 3 VIEW LT 09/14/2017. TECHNIQUE: Multiplanar, multisequence T1-weighted and fluid-sensitive sequences of the midfoot/forefoot before and after administration of intravenous contrast. IV contrast: 10 cc Gadavist. Other: None. FINDINGS: Some images are degraded due to patient-related motion artifact. There is an approximately 6.2 cm proximal to distal by 4.6 cm medial to lateral by 2 cm dorsal to plantar nonenhancing subcutaneous collection at the dorsal aspect of the midfoot/forefoot. The collection is hyperintense on the T2-weighted images and isointense to slightly hyperintense on the T1-weighted images. There are a few small foci of gas within the collection. There is a puncture wound at the dorsal aspect of the midfoot/forefoot. The collection extends to the dorsal surface of the proximal third metatarsal bone. There is an approximately 1.9 x 0.8 x 0.6 cm area of subcortical marrow edema and enhancement at the dorsal central aspect of the proximal third metatarsal. There is also focal cortical defect at the dorsal proximal aspect of the third metatarsal. There is diffuse subcutaneous edema, swelling, and enhancement at the dorsal aspect of the midfoot and forefoot. Mild edema and enhancement within the extensor digitorum brevis and dorsal intraosseous muscle. Ligaments: The visualized intertarsal, intermetatarsal, and tarsometatarsal ligaments are intact. This includes the Lisfranc ligament. The visualized collateral ligaments are intact. Tendons: The flexor and extensor tendons are unremarkable. Other: No effusions. The visualized portion of the tarsal tunnel is unremarkable. No intermetatarsal bursitis. IMPRESSION: 1. An approximately 6.2 x 4.6 x 2 cm subcutaneous collection at the dorsal aspect of the midfoot/forefoot most concerning for an abscess or an infected hematoma. There are multiple foci of gas within the collection. The collection extends from the dorsal surface of the proximal third metatarsal. There is a focal cortical defect at the dorsal proximal aspect of the third metatarsal which may represent a fracture from dog bite injury or erosion from osteomyelitis. There is a 1.9 x 0.8 x 0.6 cm area of subcortical marrow edema and enhancement at the dorsal-central aspect of the proximal third metatarsal which may represent bone contusion and/or osteomyelitis. 2. Diffuse subcutaneous edema, swelling, and enhancement at the dorsal aspect of the midfoot and forefoot most suggestive of cellulitis. 3. Mild edema and enhancement within the extensor digitorum brevis and dorsal interosseous muscles which may represent inflammatory or infectious myositis. EXAM: CHEST RADIOGRAPHY EXAM DATE: 10/02/2017 08:20 PM. CLINICAL HISTORY: Pre-op, osteomyelitis. COMPARISON: None. TECHNIQUE: 2 views. FINDINGS: Lungs/Pleura: No focal opacities evident. No pleural effusion. No pneumothorax. Normal volumes. Mediastinum: Normal heart size. Mild aortic tortuosity. Other: None. IMPRESSION: Unremarkable chest radiographs. ABX Reporting Has patient been on IV antibiotics over the past 48 hours?: Yes Assessment/Plan - Problem List (1) Cellulitis of foot, left Impression: According to Dr. Reaves, the orthopedic surgeon who is attending to Mr. Bailey, there is some question as to whether or not there is osteoarthritis osteomyelitis in the foot. Despite this, given that there is at least a fracture in the wound has been infected for a lengthy amount of time, we will treat the patient with 6 weeks of IV antibiotics following the surgical debridement today. Patient had a PICC line placed this morning and we are working on arranging for home IV antibiotics at this time. (2) Hypertension Impression: The patient has a history of hypertension and takes amlodipine, carvedilol, and losartan at home, and we have continued these while he is inpatient. His blood pressure has been slightly elevated at times but this certainly may be attributed to the pain he has had. (3) Hyperlipidemia Impression: The patient has a history of hyperlipidemia and takes atorvastatin at home. We will continue this while he is inpatient. (4) Type 2 diabetes mellitus Impression: The patient has what he describes as borderline diabetes. He takes metformin, 500 mg twice a day which we have not continued while he is been inpatient. Hemoglobin A1c showed glycolated hemoglobin of 5.2 indicating very good glycemic control. We will cover him with sliding scale insulin while he is inpatient.
--- NOTE | 2017-10-04 12:56 | XRAY Report ---
Procedure Date: 10/04/2017 Accession Number: [id number] / [id number] Procedure: XR - Chest for Line Placement CPT Code: FULL RESULT: EXAM: Chest for Line Placement DATE: 10/04/2017 10:54 AM CLINICAL HISTORY: post picc line placement COMPARISON: 10/02/2017. TECHNIQUE: Single view of the chest. FINDINGS: A right PICC terminates in the SVC. The cardiomediastinal silhouette is unremarkable. Lungs are clear. There is no pleural effusion or pneumothorax. IMPRESSION: Interval placement of a right PICC terminating in the SVC. RADIA
[2017-10-04] MEDS ORDERED: SODIUM CHLORIDE 0.9% 1,000 ML IV ONE (13:38)
[2017-10-04] MEDS: HYDROcod/ACETAM 5/325 MG TABLET PO PRN ×4 (13:42→23:58)
[2017-10-04] MEDS: NAPROXEN 250 MG TABLET PO PRN ×2 (13:43→14:30)
[2017-10-04] MEDS: NS W/20 MEQ KCL 1,000 ML IV SCH ×2 (13:45→14:30)
--- NOTE | 2017-10-04 14:29 | PROVIDER PROGRESS NOTE ---
Subjective - Prog Note Date Prog Note Date: 10/04/17 - Subjective Pt reports feeling: Improved Objective - Vital Signs/Intake & Output Vital Signs: Vital Signs x48h Temp Pulse Resp BP Pulse Ox 10/04/17 08:00 36.9 C 74 18 144/71 H 97 Intake & Output: Intake & Output 10/01/17 10/02/17 10/03/17 10/04/17 23:59 23:59 23:59 23:59 Intake Total 900 2710 2486 Output Total 1999 1826 Balance 900 032 661 - Objective General Appearance: positive: No acute distress Eyes Bilateral: positive: Normal inspection Extremities: positive: Other (Wound vac with very little drainage. No leaks.) - Lab Results Fish Bones: 10/04/17 05:37 10/04/17 05:37 Other Labs: Lab Results x24hrs 10/04/17 10/04/17 10/04/17 Range/Units 11:38 07:45 07:26 WBC (4.8-10.8) x10^3/uL RBC (4.70-6.10) 10^6/uL Hgb (14.0-18.0) g/dL Hct (42.0-52.0) % MCV (80.0-94.0) fL MCH (27.0-31.0) pg MCHC (32.0-36.0) g/dL RDW (12.0-15.0) % Plt Count (130-450) 10^3/uL MPV (7.4-11.4) fL Neut # (Auto) (1.5-6.6) 10^3/uL Lymph # (Auto) (1.5-3.5) 10^3/uL [place] # (Auto) (0.0-1.0) 10^3/uL Eos # (Auto) (0.0-0.7) 10^3/uL Baso # (Auto) (0.0-0.1) 10^3/uL Absolute Nucleated RBC x10^3/uL Nucleated RBC % /100WBC Sodium (135-145) mmol/L Potassium (3.5-5.0) mmol/L Chloride (101-111) mmol/L Carbon Dioxide (21-32) mmol/L Anion Gap (6-13) BUN (6-20) mg/dL Creatinine (0.6-1.2) mg/dL Estimated GFR (MDRD) (>89) Glucose (70-100) mg/dL POC Whole Bld Glucose 126 H 120 H (70 - 100) mg/dL Glycated Hemoglobin (4.6-6.2) % Estim Average Glucose (70-100) Calcium (8.5-10.3) mg/dL Urine Color YELLOW Urine Clarity CLEAR (CLEAR) Urine pH 6.0 (5.0-7.5) PH Ur Specific [place] 1.010 (1.002-1.030) Urine Protein NEGATIVE (NEGATIVE) mg/dL Urine Glucose (UA) NEGATIVE (NEGATIVE) mg/dL Urine Ketones NEGATIVE (NEGATIVE) mg/dL Urine Occult Blood NEGATIVE (NEGATIVE) Urine Nitrite NEGATIVE (NEGATIVE) Urine Bilirubin NEGATIVE (NEGATIVE) Urine Urobilinogen 0.2 (NORMAL) (NORMAL) E.U./dL Ur Leukocyte Esterase NEGATIVE (NEGATIVE) Ur Microscopic Review NOT INDICATED Urine Culture Comments NOT INDICATED 10/04/17 10/04/17 10/03/17 Range/Units 05:37 05:37 21:39 WBC 13.9 H (4.8-10.8) x10^3/uL RBC 3.98 L (4.70-6.10) 10^6/uL Hgb 12.0 L (14.0-18.0) g/dL Hct 34.9 L (42.0-52.0) % MCV 87.6 (80.0-94.0) fL MCH 30.1 (27.0-31.0) pg MCHC 34.4 (32.0-36.0) g/dL RDW 13.1 (12.0-15.0) % Plt Count 338 (130-450) 10^3/uL MPV 8.4 (7.4-11.4) fL Neut # (Auto) 12.1 H (1.5-6.6) 10^3/uL Lymph # (Auto) 1.3 L (1.5-3.5) 10^3/uL [place] # (Auto) 0.5 (0.0-1.0) 10^3/uL Eos # (Auto) 0.0 (0.0-0.7) 10^3/uL Baso # (Auto) 0.0 (0.0-0.1) 10^3/uL Absolute Nucleated RBC 0.01 x10^3/uL Nucleated RBC % 0.1 /100WBC Sodium 139 (135-145) mmol/L Potassium 4.1 (3.5-5.0) mmol/L Chloride 107 (101-111) mmol/L Carbon Dioxide 24 (21-32) mmol/L Anion Gap 8.0 (6-13) BUN 17 (6-20) mg/dL Creatinine 1.1 (0.6-1.2) mg/dL Estimated GFR (MDRD) 66 L (>89) Glucose 130 H (70-100) mg/dL POC Whole Bld Glucose 149 H (70 - 100) mg/dL Glycated Hemoglobin (4.6-6.2) % Estim Average Glucose (70-100) Calcium 8.7 (8.5-10.3) mg/dL Urine Color Urine Clarity (CLEAR) Urine pH (5.0-7.5) PH Ur Specific [place] (1.002-1.030) Urine Protein (NEGATIVE) mg/dL Urine Glucose (UA) (NEGATIVE) mg/dL Urine Ketones (NEGATIVE) mg/dL Urine Occult Blood (NEGATIVE) Urine Nitrite (NEGATIVE) Urine Bilirubin (NEGATIVE) Urine Urobilinogen (NORMAL) E.U./dL Ur Leukocyte Esterase (NEGATIVE) Ur Microscopic Review Urine Culture Comments 10/03/17 10/03/17 Range/Units 19:34 06:19 WBC (4.8-10.8) x10^3/uL RBC (4.70-6.10) 10^6/uL Hgb (14.0-18.0) g/dL Hct (42.0-52.0) % MCV (80.0-94.0) fL MCH (27.0-31.0) pg MCHC (32.0-36.0) g/dL RDW (12.0-15.0) % Plt Count (130-450) 10^3/uL MPV (7.4-11.4) fL Neut # (Auto) (1.5-6.6) 10^3/uL Lymph # (Auto) (1.5-3.5) 10^3/uL [place] # (Auto) (0.0-1.0) 10^3/uL Eos # (Auto) (0.0-0.7) 10^3/uL Baso # (Auto) (0.0-0.1) 10^3/uL Absolute Nucleated RBC x10^3/uL Nucleated RBC % /100WBC Sodium (135-145) mmol/L Potassium (3.5-5.0) mmol/L Chloride (101-111) mmol/L Carbon Dioxide (21-32) mmol/L Anion Gap (6-13) BUN (6-20) mg/dL Creatinine (0.6-1.2) mg/dL Estimated GFR (MDRD) (>89) Glucose (70-100) mg/dL POC Whole Bld Glucose 98 (70 - 100) mg/dL Glycated Hemoglobin 5.2 (4.6-6.2) % Estim Average Glucose 103 H (70-100) Calcium (8.5-10.3) mg/dL Urine Color Urine Clarity (CLEAR) Urine pH (5.0-7.5) PH Ur Specific [place] (1.002-1.030) Urine Protein (NEGATIVE) mg/dL Urine Glucose (UA) (NEGATIVE) mg/dL Urine Ketones (NEGATIVE) mg/dL Urine Occult Blood (NEGATIVE) Urine Nitrite (NEGATIVE) Urine Bilirubin (NEGATIVE) Urine Urobilinogen (NORMAL) E.U./dL Ur Leukocyte Esterase (NEGATIVE) Ur Microscopic Review Urine Culture Comments Assessment/Plan - Problem List (1) Dog bite of left foot Impression: Plan to continue antibiotics for 6 weeks. Will need Wound care follow up and orthopedic follow up Qualifiers: Encounter type: initial encounter Qualified Code(s): S91.352A - Open bite, left foot, initial encounter; W54.0XXA - Bitten by dog, initial encounter; W54.0XXA - Bitten by dog, initial encounter
[2017-10-04 21:37] LABS: VANCOMYCIN,TROUGH 14.1 ug/mL (10.0-20.0)
[2017-10-05] MEDS: SODIUM CHLORIDE FLUSH 0.9% 10 ML SYRINGE IVP SCH ×4 (00:59→23:33)
[2017-10-05] MEDS: AMPICILLIN/SULBACTAM 3 GM in SODIUM CHLORIDE 0.9% MINIBAG 100 ML IV SCH ×4 (02:00→20:51)
[2017-10-05] MEDS: NS W/20 MEQ KCL 1,000 ML IV SCH ×2 (02:06→19:37)
[2017-10-05] MEDS: PANTOPRAZOLE 40 MG VIAL IVP SCH (06:31)
[2017-10-05] MEDS: BACLOFEN 10 MG TABLET PO SCH ×3 (06:31→21:45)
[2017-10-05] MEDS: SODIUM CHLORIDE FLUSH 0.9% 10 ML SYRINGE IVP PRN ×3 (06:31→16:42)
[2017-10-05 06:41] LABS: BASOPHILS # (AUTO) 0.1 10^3/uL (0.0-0.1); EOSINOPHILS # (AUTO) 0.1 10^3/uL (0.0-0.7); EOSINOPHILS % (AUTO) 1.3 %; HGB - HEMOGLOBIN 10.6 g/dL (14.0-18.0); LYMPHOCYTES # (AUTO) 2.5 10^3/uL (1.5-3.5); LYMPHOCYTES % (AUTO) 24.8 %; MEAN CORPUSCULAR HEMOGLOBIN 30.1 pg (27.0-31.0); MEAN CORPUSCULAR HGB CONC 34.3 g/dL (32.0-36.0); MEAN CORPUSCULAR VOLUME 87.5 fL (80.0-94.0); MEAN PLATELET VOLUME 8.2 fL (7.4-11.4); MONOCYTES # (AUTO) 0.8 10^3/uL (0.0-1.0); MONOCYTES % (AUTO) 8.1 %; NEUTROPHILS # (AUTO) 6.5 10^3/uL (1.5-6.6); NEUTROPHILS % (AUTO) 64.8 %; PLT - PLATELET COUNT 256 10^3/uL (130-450); RED BLOOD COUNT 3.54 10^6/uL (4.70-6.10); RED CELL DISTRIBUTION WIDTH 13.4 % (12.0-15.0)
[2017-10-05 06:48] LABS: CALCIUM 8.3 mg/dL (8.5-10.3); CREATININE 0.9 mg/dL (0.6-1.2)
[2017-10-05] MEDS: INSULIN ASPART 300 UNIT/3 ML PEN SUBQ SCH ×4 (08:02→21:10)
[2017-10-05] MEDS: amLODIPine 5 MG TABLET PO SCH ×2 (09:21→20:41)
[2017-10-05] MEDS: hydroCHLOROthiazide 25 MG TABLET PO SCH (09:21)
[2017-10-05] MEDS: CARVEDILOL 3.125 MG TABLET PO SCH ×2 (09:21→20:41)
[2017-10-05] MEDS: LOSARTAN 50 MG TABLET PO SCH (09:22)
[2017-10-05] MEDS: POLYETHYLENE GLYCOL 3350 17 GM PACKET PO SCH (09:23)
[2017-10-05] MEDS: VANCOMYCIN INJ 1 GM, VANCOMYCIN INJ 500 MG in SODIUM CHLORIDE 0.9% 500 ML IV SCH ×2 (09:24→21:45)
[2017-10-05] MEDS: NAPROXEN 250 MG TABLET PO PRN (12:03)
[2017-10-05] MEDS: SACCHAROMYCES BOULARDII 250 MG CAPSULE PO SCH ×2 (12:03→16:32)
--- NOTE | 2017-10-05 13:10 | PROVIDER PROGRESS NOTE ---
Subjective - Prog Note Date Prog Note Date: 10/05/17 Prog Note Time: 13:09 - Subjective Pt reports feeling: Improved Objective - Vital Signs/Intake & Output Vital Signs: Vital Signs x48h Temp Pulse Resp BP Pulse Ox 10/05/17 08:00 36.9 C 58 L 16 139/68 H 95 Intake & Output: Intake & Output 10/02/17 10/03/17 10/04/17 10/05/17 23:59 23:59 23:59 23:59 Intake Total 900 2710 3779.75 3006.75 Output Total 2000 2275 450 Balance 042 866 1300.75 2556.75 - Objective General Appearance: positive: No acute distress Extremities: positive: Other (Dressing OK) - Lab Results Fish Bones: 10/05/17 06:25 10/05/17 06:25 Other Labs: Lab Results x24hrs 10/05/17 10/05/17 10/05/17 Range/Units 11:46 07:22 06:25 WBC 10.0 (4.8-10.8) x10^3/uL RBC 3.54 L (4.70-6.10) 10^6/uL Hgb 10.6 L (14.0-18.0) g/dL Hct 31.0 L (42.0-52.0) % MCV 87.5 (80.0-94.0) fL MCH 30.1 (27.0-31.0) pg MCHC 34.3 (32.0-36.0) g/dL RDW 13.4 (12.0-15.0) % Plt Count 256 (130-450) 10^3/uL MPV 8.2 (7.4-11.4) fL Neut # (Auto) 6.5 (1.5-6.6) 10^3/uL Lymph # (Auto) 2.5 (1.5-3.5) 10^3/uL [place] # (Auto) 0.8 (0.0-1.0) 10^3/uL Eos # (Auto) 0.1 (0.0-0.7) 10^3/uL Baso # (Auto) 0.1 (0.0-0.1) 10^3/uL Absolute Nucleated RBC 0.00 x10^3/uL Nucleated RBC % 0.0 /100WBC Sodium (135-145) mmol/L Potassium (3.5-5.0) mmol/L Chloride (101-111) mmol/L Carbon Dioxide (21-32) mmol/L Anion Gap (6-13) BUN (6-20) mg/dL Creatinine (0.6-1.2) mg/dL Estimated GFR (MDRD) (>89) Glucose (70-100) mg/dL POC Whole Bld Glucose 90 86 (70 - 100) mg/dL Calcium (8.5-10.3) mg/dL Last Dose Date Last Dose Time Vancomycin Trough (10.0-20.0) ug/mL 10/05/17 10/04/17 10/04/17 Range/Units 06:25 21:25 20:24 WBC (4.8-10.8) x10^3/uL RBC (4.70-6.10) 10^6/uL Hgb (14.0-18.0) g/dL Hct (42.0-52.0) % MCV (80.0-94.0) fL MCH (27.0-31.0) pg MCHC (32.0-36.0) g/dL RDW (12.0-15.0) % Plt Count (130-450) 10^3/uL MPV (7.4-11.4) fL Neut # (Auto) (1.5-6.6) 10^3/uL Lymph # (Auto) (1.5-3.5) 10^3/uL [place] # (Auto) (0.0-1.0) 10^3/uL Eos # (Auto) (0.0-0.7) 10^3/uL Baso # (Auto) (0.0-0.1) 10^3/uL Absolute Nucleated RBC x10^3/uL Nucleated RBC % /100WBC Sodium 142 (135-145) mmol/L Potassium 3.7 (3.5-5.0) mmol/L Chloride 109 (101-111) mmol/L Carbon Dioxide 26 (21-32) mmol/L Anion Gap 7.0 (6-13) BUN 17 (6-20) mg/dL Creatinine 0.9 (0.6-1.2) mg/dL Estimated GFR (MDRD) 84 L (>89) Glucose 96 (70-100) mg/dL POC Whole Bld Glucose 124 H (70 - 100) mg/dL Calcium 8.3 L (8.5-10.3) mg/dL Last Dose Date 10/04/17 Last Dose Time 1200 Vancomycin Trough 14.1 (10.0-20.0) ug/mL 10/04/17 Range/Units 16:40 WBC (4.8-10.8) x10^3/uL RBC (4.70-6.10) 10^6/uL Hgb (14.0-18.0) g/dL Hct (42.0-52.0) % MCV (80.0-94.0) fL MCH (27.0-31.0) pg MCHC (32.0-36.0) g/dL RDW (12.0-15.0) % Plt Count (130-450) 10^3/uL MPV (7.4-11.4) fL Neut # (Auto) (1.5-6.6) 10^3/uL Lymph # (Auto) (1.5-3.5) 10^3/uL [place] # (Auto) (0.0-1.0) 10^3/uL Eos # (Auto) (0.0-0.7) 10^3/uL Baso # (Auto) (0.0-0.1) 10^3/uL Absolute Nucleated RBC x10^3/uL Nucleated RBC % /100WBC Sodium (135-145) mmol/L Potassium (3.5-5.0) mmol/L Chloride (101-111) mmol/L Carbon Dioxide (21-32) mmol/L Anion Gap (6-13) BUN (6-20) mg/dL Creatinine (0.6-1.2) mg/dL Estimated GFR (MDRD) (>89) Glucose (70-100) mg/dL POC Whole Bld Glucose 116 H (70 - 100) mg/dL Calcium (8.5-10.3) mg/dL Last Dose Date Last Dose Time Vancomycin Trough (10.0-20.0) ug/mL Assessment/Plan - Problem List (1) Dog bite of left foot Impression: Plan to continue IV antibiotics for 6 weeks. Discussed with hospitalist this am. Cultures are no growth. Qualifiers: Encounter type: initial encounter Qualified Code(s): S91.352A - Open bite, left foot, initial encounter; W54.0XXA - Bitten by dog, initial encounter; W54.0XXA - Bitten by dog, initial encounter
[2017-10-05] MEDS: HYDROmorphone 0.5 MG/0.5 ML SYRINGE IVP PRN (13:53)
--- NOTE | 2017-10-05 15:59 | PROVIDER PROGRESS NOTE ---
Subjective - Prog Note Date Prog Note Date: 10/05/17 - Subjective Pt reports feeling: Improved Subjective: pt state he feel fine, no complaint. no fever, chill, CP, cough, SOB. discussed with Dr. Reaves about pt's plan for d/c, recommend pt need 6 weeks of IV antibiotics. Pt has PICC line. high risk case manager is planing for pt's infusion therapy for d/c plan Current Medications - Current Medications Current Medications: Active Medications Acetaminophen (Tylenol) 650 mg PO Q4HR PRN PRN Reason: Pain or Fever > 38C (100.4F) Hydrocodone Bitart/Acetaminophen ([place] 5/325) 1 tab PO Q4HR PRN PRN Reason: Pain 5 to 7 Last Admin: 10/04/17 23:58 Dose: 1 tab Amlodipine Besylate (Norvasc) 5 mg PO BID [facility] Last Admin: 10/05/17 09:21 Dose: 5 mg Baclofen (Lioresal) 10 mg PO TID [facility] Last Admin: 10/05/17 14:49 Dose: 10 mg Carvedilol (Coreg) 6.25 mg PO BID [facility] Last Admin: 10/05/17 09:21 Dose: 6.25 mg Hydrochlorothiazide (Hydrodiuril) 25 mg PO DAILY [facility] Last Admin: 10/05/17 09:21 Dose: 25 mg Hydromorphone HCl (Dilaudid Inj Syringe) 0.5 mg IVP Q2H PRN PRN Reason: Pain 8 to 10 Last Admin: 10/05/17 13:53 Dose: 0.5 mg Potassium Chloride/Sodium Chloride (Normal Saline 0.9% W/20 Meq Kcl) 1,000 mls @ 75 mls/hr IV .[id number] [facility] Last Infusion: 10/05/17 11:20 Dose: 75 mls/hr Ampicillin Sodium/Sulbactam (Sodium 3 gm/ Sodium Chloride) 100 mls @ 200 mls/ hr IV Q6H [facility] Last Admin: 10/05/17 14:49 Dose: 200 mls/hr Vancomycin HCl 1 gm/Vancomycin HCl 500 mg/ Sodium Chloride 500 mls @ 250 mls/ hr IV Q12H [facility] Last Infusion: 10/05/17 11:19 Dose: Infused Insulin Aspart (Novolog) 1 - 9 unit SUBQ 0800,1200,1700,2100 [facility] PRN Reason: Protocol Last Admin: 10/05/17 11:57 Dose: Not Given Losartan Potassium (Cozaar) 100 mg PO DAILY [facility] Last Admin: 10/05/17 09:22 Dose: 100 mg Naproxen (Naprosyn) 500 mg PO BID PRN PRN Reason: PAIN Last Admin: 10/05/17 12:03 Dose: 500 mg Ondansetron HCl (Zofran Inj) 4 mg IVP Q6HR PRN PRN Reason: Nausea / Vomiting Pantoprazole Sodium (Protonix) 40 mg IVP QDAC [facility] Last Admin: 10/05/17 06:31 Dose: 40 mg Polyethylene Glycol (Miralax) 17 gm PO DAILY [facility] Last Admin: 10/05/17 09:23 Dose: Not Given Saccharomyces Boulardii (Florastor) 250 mg PO BIDWM [facility] Last Admin: 10/05/17 12:03 Dose: 250 mg Sodium Chloride (Normal Saline Flush 0.9%) 10 ml IVP PRN PRN PRN Reason: NEEDED PER PROVIDER ORDERS Last Admin: 10/05/17 13:54 Dose: 20 ml Sodium Chloride (Normal Saline Flush 0.9%) 10 ml IVP 0100,0900,1700 [facility] Last Admin: 10/05/17 09:28 Dose: Not Given Temazepam (Restoril) 15 mg PO QPM PRN PRN Reason: Insomnia Atorvastatin Calcium [Atorvastatin Calcium] 40 mg PO QPM 10/02/17 Baclofen [Baclofen] 10 mg PO BID PRN 10/02/17 Carvedilol [Carvedilol] 6.25 mg PO BID 10/02/17 Losartan Potassium [Losartan Potassium] 100 mg PO DAILY 10/02/17 Metformin HCl [Metformin HCl] 500 mg PO BIDWM 10/02/17 Naproxen [Naproxen] 500 mg PO BID 10/02/17 amLODIPine [Norvasc] 5 mg PO BID 10/02/17 hydroCHLOROthiazide [Hydrochlorothiazide] 25 mg PO DAILY 10/02/17 oxyCODONE [Roxicodone] 5 mg PO Q6HR PRN 10/02/17 Aspirin 162 mg PO DAILY 10/03/17 Objective - Vital Signs/Intake & Output Reviewed Vital Signs: Yes Vital Signs: Vital Signs x48h Temp Pulse Pulse Resp BP Pulse Ox 10/05/17 15:48 36.9 C 61 20 131/65 H 94 10/05/17 08:00 36.9 C 58 L 16 139/68 H 95 Intake & Output: Intake & Output 10/02/17 10/03/17 10/04/17 10/05/17 23:59 23:59 23:59 23:59 Intake Total 900 2710 3779.75 3006.75 Output Total 2000 2275 1900 Balance 940 781 1655.75 1106.75 - Objective General Appearance: positive: No acute distress, Alert. negative: Lethargic Eyes Bilateral: positive: Normal inspection, PERRL, No lid inflammation, Conjunctivae nml ENT: positive: ENT inspection nml, Pharynx nml, No signs of dehydration Neck: positive: Nml inspection, Thyroid nml, No JVD, Trachea midline. negative : Thyromegaly, Lymphadenopathy (R), Lymphadenopathy (L), Stiff neck, Swelling/ bruising, Tracheal deviation Respiratory: positive: Chest non-tender, No respiratory distress, Breath sounds nml. negative: Wheezes, Rales, Rhonchi Cardiovascular: positive: Regular rate & rhythm, No murmur, No gallop. negative : Irregularly irregular, Extrasystoles, Tachycardia, Bradycardia, JVD present, Systolic murmur, Diastolic murmur Peripheral Pulses: 2+ Radial (R), 2+ Radial (L), 2+ Dorsalis pedis (R), 2+ Dorsalis pedis (L) Abdomen: positive: Non-tender, No organomegaly, Nml bowel sounds, No distention. negative: Tenderness, Guarding, Rebound Back: positive: Nml inspection. negative: CVA tenderness (R), CVA tenderness (L ) Skin: positive: Color nml, No rash, Warm, Dry, Puncture wound. negative: Cyanosis, Diaphoresis, Pallor Extremities: positive: Non-tender. negative: Calf tenderness, Joint swelling, Cruzito's sign/cords Neurologic/Psychiatric: positive: Oriented x3, Sensation nml, Mood/affect nml. negative: Weakness, Sensory loss, Facial droop, Slurred/abnml speech, Depressed mood/affect - Lab Results Fish Bones: 10/05/17 06:25 10/05/17 06:25 Other Labs: Lab Results x24hrs 0810/05/17 10/05/17 Range/Units 11:46 07:22 06:25 WBC 10.0 (4.8-10.8) x10^3/uL RBC 3.54 L (4.70-6.10) 10^6/uL Hgb 10.6 L (14.0-18.0) g/dL Hct 31.0 L (42.0-52.0) % MCV 87.5 (80.0-94.0) fL MCH 30.1 (27.0-31.0) pg MCHC 34.3 (32.0-36.0) g/dL RDW 13.4 (12.0-15.0) % Plt Count 256 (130-450) 10^3/uL MPV 8.2 (7.4-11.4) fL Neut # (Auto) 6.5 (1.5-6.6) 10^3/uL Lymph # (Auto) 2.5 (1.5-3.5) 10^3/uL [place] # (Auto) 0.8 (0.0-1.0) 10^3/uL Eos # (Auto) 0.1 (0.0-0.7) 10^3/uL Baso # (Auto) 0.1 (0.0-0.1) 10^3/uL Absolute Nucleated RBC 0.00 x10^3/uL Nucleated RBC % 0.0 /100WBC Sodium (135-145) mmol/L Potassium (3.5-5.0) mmol/L Chloride (101-111) mmol/L Carbon Dioxide (21-32) mmol/L Anion Gap (6-13) BUN (6-20) mg/dL Creatinine (0.6-1.2) mg/dL Estimated GFR (MDRD) (>89) Glucose (70-100) mg/dL POC Whole Bld Glucose 90 86 (70 - 100) mg/dL Calcium (8.5-10.3) mg/dL Last Dose Date Last Dose Time Vancomycin Trough (10.0-20.0) ug/mL 10/05/17 10/04/17 10/04/17 Range/Units 06:25 21:25 20:24 WBC (4.8-10.8) x10^3/uL RBC (4.70-6.10) 10^6/uL Hgb (14.0-18.0) g/dL Hct (42.0-52.0) % MCV (80.0-94.0) fL MCH (27.0-31.0) pg MCHC (32.0-36.0) g/dL RDW (12.0-15.0) % Plt Count (130-450) 10^3/uL MPV (7.4-11.4) fL Neut # (Auto) (1.5-6.6) 10^3/uL Lymph # (Auto) (1.5-3.5) 10^3/uL [place] # (Auto) (0.0-1.0) 10^3/uL Eos # (Auto) (0.0-0.7) 10^3/uL Baso # (Auto) (0.0-0.1) 10^3/uL Absolute Nucleated RBC x10^3/uL Nucleated RBC % /100WBC Sodium 142 (135-145) mmol/L Potassium 3.7 (3.5-5.0) mmol/L Chloride 109 (101-111) mmol/L Carbon Dioxide 26 (21-32) mmol/L Anion Gap 7.0 (6-13) BUN 17 (6-20) mg/dL Creatinine 0.9 (0.6-1.2) mg/dL Estimated GFR (MDRD) 84 L (>89) Glucose 96 (70-100) mg/dL POC Whole Bld Glucose 124 H (70 - 100) mg/dL Calcium 8.3 L (8.5-10.3) mg/dL Last Dose Date 10/04/17 Last Dose Time 1200 Vancomycin Trough 14.1 (10.0-20.0) ug/mL 10/04/17 Range/Units 16:40 WBC (4.8-10.8) x10^3/uL RBC (4.70-6.10) 10^6/uL Hgb (14.0-18.0) g/dL Hct (42.0-52.0) % MCV (80.0-94.0) fL MCH (27.0-31.0) pg MCHC (32.0-36.0) g/dL RDW (12.0-15.0) % Plt Count (130-450) 10^3/uL MPV (7.4-11.4) fL Neut # (Auto) (1.5-6.6) 10^3/uL Lymph # (Auto) (1.5-3.5) 10^3/uL [place] # (Auto) (0.0-1.0) 10^3/uL Eos # (Auto) (0.0-0.7) 10^3/uL Baso # (Auto) (0.0-0.1) 10^3/uL Absolute Nucleated RBC x10^3/uL Nucleated RBC % /100WBC Sodium (135-145) mmol/L Potassium (3.5-5.0) mmol/L Chloride (101-111) mmol/L Carbon Dioxide (21-32) mmol/L Anion Gap (6-13) BUN (6-20) mg/dL Creatinine (0.6-1.2) mg/dL Estimated GFR (MDRD) (>89) Glucose (70-100) mg/dL POC Whole Bld Glucose 116 H (70 - 100) mg/dL Calcium (8.5-10.3) mg/dL Last Dose Date Last Dose Time Vancomycin Trough (10.0-20.0) ug/mL ABX Reporting Has patient been on IV antibiotics over the past 48 hours?: Yes Assessment/Plan - Problem List (1) Cellulitis of foot, left Impression: Impression: will plan 6 weeks for IV of antibiotics for pt per Dr. Reaves's recommendation. Pt also is with DM2. per discuss with pharmacy, and current treatment, Antibiotics may have Rocephin 2 grm daily, Vancomycin 1.5mg Q12h for 6 weeks, high risk case manager is planning for that, plan d/c pt for tomorrow with [facility] wound care and IV of antibiotics According to Dr. Reaves, the orthopedic surgeon who is attending to Mr. Bailey, there is some question as to whether or not there is osteoarthritis osteomyelitis in the foot. Despite this, given that there is at least a fracture in the wound has been infected for a lengthy amount of time, we will treat the patient with 6 weeks of IV antibiotics following the surgical debridement today. Patient had a PICC line placed this morning and we are working on arranging for home IV antibiotics at this time. (2) Hypertension Impression: stable The patient has a history of hypertension and takes amlodipine, carvedilol, and losartan at home, and we have continued these while he is inpatient. His blood pressure has been slightly elevated at times but this certainly may be attributed to the pain he has had. (3) Hyperlipidemia Impression: The patient has a history of hyperlipidemia and takes atorvastatin at home. We will continue this while he is inpatient. (4) Type 2 diabetes mellitus Impression: stable, well controlled glucose continue current regimen The patient has what he describes as borderline diabetes. He takes metformin, 500 mg twice a day which we have not continued while he is been inpatient. Hemoglobin A1c showed glycolated hemoglobin of 5.2 indicating very good glycemic control. We will cover him with sliding scale insulin while he is inpatient.
[2017-10-05] MEDS: HYDROcod/ACETAM 5/325 MG TABLET PO PRN (23:53)
[2017-10-06] MEDS: AMPICILLIN/SULBACTAM 3 GM in SODIUM CHLORIDE 0.9% MINIBAG 100 ML IV SCH ×4 (02:17→20:26)
[2017-10-06] MEDS: HYDROmorphone 0.5 MG/0.5 ML SYRINGE IVP PRN (02:23)
[2017-10-06] MEDS: SODIUM CHLORIDE FLUSH 0.9% 10 ML SYRINGE IVP PRN ×2 (02:24→06:13)
[2017-10-06] MEDS: HYDROcod/ACETAM 5/325 MG TABLET PO PRN ×3 (04:43→23:17)
[2017-10-06 05:32] LABS: HGB - HEMOGLOBIN 11.5 g/dL (14.0-18.0); MEAN CORPUSCULAR HEMOGLOBIN 29.9 pg (27.0-31.0); MEAN CORPUSCULAR HGB CONC 33.9 g/dL (32.0-36.0); MEAN CORPUSCULAR VOLUME 88.3 fL (80.0-94.0); MEAN PLATELET VOLUME 8.3 fL (7.4-11.4); RED BLOOD COUNT 3.85 10^6/uL (4.70-6.10); RED CELL DISTRIBUTION WIDTH 13.6 % (12.0-15.0); WHITE BLOOD COUNT 10.8 x10^3/uL (4.8-10.8)
[2017-10-06 05:53] LABS: CREATININE 0.8 mg/dL (0.6-1.2)
[2017-10-06 06:01] LABS: CALCIUM 8.6 mg/dL (8.5-10.3)
[2017-10-06] MEDS: BACLOFEN 10 MG TABLET PO SCH ×3 (06:12→21:09)
[2017-10-06] MEDS: SODIUM CHLORIDE FLUSH 0.9% 10 ML SYRINGE IVP SCH ×2 (06:13→17:27)
[2017-10-06] MEDS: PANTOPRAZOLE 40 MG VIAL IVP SCH (06:13)
[2017-10-06] MEDS: INSULIN ASPART 300 UNIT/3 ML PEN SUBQ SCH ×4 (07:33→21:04)
[2017-10-06] MEDS: SACCHAROMYCES BOULARDII 250 MG CAPSULE PO SCH ×2 (09:27→17:26)
[2017-10-06] MEDS: LOSARTAN 50 MG TABLET PO SCH (09:27)
[2017-10-06] MEDS: VANCOMYCIN INJ 1 GM, VANCOMYCIN INJ 500 MG in SODIUM CHLORIDE 0.9% 500 ML IV SCH (09:27)
[2017-10-06] MEDS: amLODIPine 5 MG TABLET PO SCH ×2 (09:28→21:08)
[2017-10-06] MEDS: hydroCHLOROthiazide 25 MG TABLET PO SCH (09:28)
[2017-10-06] MEDS: CARVEDILOL 3.125 MG TABLET PO SCH ×2 (09:28→21:08)
[2017-10-06] MEDS: POLYETHYLENE GLYCOL 3350 17 GM PACKET PO SCH (09:58)
--- NOTE | 2017-10-06 11:00 | Discharge Plan ---
Discharge Plan Disposition: 01 Home, Self Care Condition: Poor Diet: Diabetic Activity Restrictions: Activity as Tolerated Shower Restrictions: No (fall precaution) Instruction Topics: Ceftriaxone injection, Vancomycin injection Additional Instructions or Follow Up instructions: You may follow up your PCP in one week, follow up orthopedics surgeon Dr. Reaves in 3 weeks, follow up [facility] for wound care, have IV antibiotics for 6 weeks. Should your symptoms return or worsen, you may present ER or call 911 for help. Follow-Up Care: [facility] - Wound/Ostomy No Smoking: If you smoke, Please STOP! Call for help. Follow-up with: Richard Cruz MD [Primary Care Provider] -
--- NOTE | 2017-10-06 11:08 | DISCHARGE SUMMARY ---
Discharge Summary Discharge Date: 10/06/17 Discharging Provider: MINAYA Primary Care Provider: DR. Cruz Condition at Discharge: Poor Discharge Disposition: 01 Home, Self Care Discharge Facility Name: home - ALLERGIES Allergies/Adverse Reactions: Allergies Allergy/AdvReac Type Severity Reaction Status Date / Time No Known Drug Allergies Allergy Verified 10/02/17 18:58 - MEDICATIONS Home Medications: Ambulatory Orders Medication Instructions Recorded Confirmed Atorvastatin Calcium 40 mg PO QPM 10/02/17 10/03/17 Baclofen 10 mg PO BID PRN 10/02/17 10/03/17 Carvedilol 6.25 mg PO BID 10/02/17 10/03/17 Losartan Potassium 100 mg PO DAILY 10/02/17 10/03/17 Metformin HCl 500 mg PO BIDWM 10/02/17 10/03/17 Naproxen 500 mg PO BID 10/02/17 10/03/17 amLODIPine [Norvasc] 5 mg PO BID 10/02/17 10/03/17 hydroCHLOROthiazide 25 mg PO DAILY 10/02/17 10/03/17 [Hydrochlorothiazide] oxyCODONE [Roxicodone] 5 mg PO Q6HR PRN 10/02/17 10/03/17 Aspirin 162 mg PO DAILY 10/03/17 10/03/17 - LABS Result Diagrams: 10/06/17 05:00 10/06/17 05:00
--- NOTE | 2017-10-06 16:20 | PROVIDER PROGRESS NOTE ---
Subjective - Prog Note Date Prog Note Date: 10/06/17 - Subjective Pt reports feeling: Improved Subjective: I called ID in Dr. Gee, she recommend, according to the culture , unasyn is the best medication; d/c with unasyn; follow up sensitivity study; not necessary to use vancomycin for d/c to go home. Pt also need arranged for vac machine for pt to be d/c home. Current Medications - Current Medications Current Medications: Active Medications Acetaminophen (Tylenol) 650 mg PO Q4HR PRN PRN Reason: Pain or Fever > 38C (100.4F) Hydrocodone Bitart/Acetaminophen ([place] 5/325) 1 tab PO Q4HR PRN PRN Reason: Pain 5 to 7 Last Admin: 10/06/17 04:43 Dose: 1 tab Amlodipine Besylate (Norvasc) 5 mg PO BID [facility] Last Admin: 10/06/17 09:28 Dose: 5 mg Baclofen (Lioresal) 10 mg PO TID [facility] Last Admin: 10/06/17 15:18 Dose: 10 mg Carvedilol (Coreg) 6.25 mg PO BID [facility] Last Admin: 10/06/17 09:28 Dose: 6.25 mg Hydrochlorothiazide (Hydrodiuril) 25 mg PO DAILY [facility] Last Admin: 10/06/17 09:28 Dose: 25 mg Hydromorphone HCl (Dilaudid Inj Syringe) 0.5 mg IVP Q2H PRN PRN Reason: Pain 8 to 10 Last Admin: 10/06/17 02:23 Dose: 0.5 mg Potassium Chloride/Sodium Chloride (Normal Saline 0.9% W/20 Meq Kcl) 1,000 mls @ 75 mls/hr IV .[id number] [facility] Last Admin: 10/06/17 17:26 Dose: 75 mls/hr Ampicillin Sodium/Sulbactam (Sodium 3 gm/ Sodium Chloride) 100 mls @ 200 mls/ hr IV Q6H [facility] Last Infusion: 10/06/17 16:34 Dose: Infused Insulin Aspart (Novolog) 1 - 9 unit SUBQ 0800,1200,1700,2100 [facility] PRN Reason: Protocol Last Admin: 10/06/17 17:26 Dose: Not Given Losartan Potassium (Cozaar) 100 mg PO DAILY [facility] Last Admin: 08/08/18 09:27 Dose: 100 mg Naproxen (Naprosyn) 500 mg PO BID PRN PRN Reason: PAIN Last Admin: 10/05/17 12:03 Dose: 500 mg Ondansetron HCl (Zofran Inj) 4 mg IVP Q6HR PRN PRN Reason: Nausea / Vomiting Pantoprazole Sodium (Protonix) 40 mg IVP QDAC [facility] Last Admin: 10/06/17 06:13 Dose: 40 mg Polyethylene Glycol (Miralax) 17 gm PO DAILY [facility] Last Admin: 10/06/17 09:58 Dose: Not Given Saccharomyces Boulardii (Florastor) 250 mg PO BIDWM [facility] Last Admin: 10/06/17 17:26 Dose: 250 mg Sodium Chloride (Normal Saline Flush 0.9%) 10 ml IVP PRN PRN PRN Reason: NEEDED PER PROVIDER ORDERS Last Admin: 10/06/17 06:13 Dose: 10 ml Sodium Chloride (Normal Saline Flush 0.9%) 10 ml IVP 0100,0900,1700 [facility] Last Admin: 10/06/17 17:27 Dose: Not Given Temazepam (Restoril) 15 mg PO QPM PRN PRN Reason: Insomnia Atorvastatin Calcium 40 mg PO QPM 10/02/17 Baclofen 10 mg PO BID PRN 10/02/17 Carvedilol 6.25 mg PO BID 10/02/17 Losartan Potassium 100 mg PO DAILY 10/02/17 Metformin HCl 500 mg PO BIDWM 10/02/17 Naproxen 500 mg PO BID 10/02/17 amLODIPine [Norvasc] 5 mg PO BID 10/02/17 hydroCHLOROthiazide [Hydrochlorothiazide] 25 mg PO DAILY 10/02/17 oxyCODONE [Roxicodone] 5 mg PO Q6HR PRN 10/02/17 Aspirin 162 mg PO DAILY 10/03/17 Objective - Vital Signs/Intake & Output Reviewed Vital Signs: Yes Vital Signs: Vital Signs x48h Temp Pulse Resp BP Pulse Ox 10/06/17 16:00 36.9 C 66 18 131/74 H 97 Intake & Output: Intake & Output 10/03/17 10/04/17 10/05/17 10/06/17 23:59 23:59 23:59 23:59 Intake Total 2710 3779.75 5115.50 1460 Output Total 1999 2983 8843 2087 Balance 710 1504.75 1015.50 -2240 - Objective General Appearance: positive: No acute distress, Alert. negative: Lethargic Eyes Bilateral: positive: Normal inspection, PERRL, No lid inflammation, Conjunctivae nml ENT: positive: ENT inspection nml, Pharynx nml, No signs of dehydration. negative: Purulent nasal drainage, Pharyngeal erythema, Oral lesions Neck: positive: Nml inspection, Thyroid nml, No JVD, Trachea midline. negative : Thyromegaly, Lymphadenopathy (R), Lymphadenopathy (L), Stiff neck, Swelling/ bruising, Tracheal deviation Respiratory: positive: Chest non-tender, No respiratory distress, Breath sounds nml. negative: Wheezes, Rales, Rhonchi Cardiovascular: positive: Regular rate & rhythm, No murmur, No gallop. negative : Irregularly irregular, Extrasystoles, Tachycardia, Bradycardia, JVD present, Systolic murmur, Diastolic murmur Peripheral Pulses: 2+ Radial (R), 2+ Radial (L), 2+ Dorsalis pedis (R), 2+ Dorsalis pedis (L) Abdomen: positive: Non-tender, No organomegaly, Nml bowel sounds, No distention. negative: Tenderness, Guarding, Rebound Back: positive: Nml inspection. negative: CVA tenderness (R), CVA tenderness (L ) Skin: positive: Color nml, No rash, Warm, Dry. negative: Cyanosis, Diaphoresis , Pallor, Skin rash Extremities: positive: Non-tender. negative: Calf tenderness, Joint swelling, Cruzito's sign/cords Neurologic/Psychiatric: positive: Oriented x3, Motor nml, Sensation nml, Mood/ affect nml. negative: Weakness, Sensory loss, Facial droop, Slurred/abnml speech, Depressed mood/affect - Lab Results Fish Bones: 10/06/17 05:00 10/06/17 05:00 Other Labs: Lab Results x24hrs 10/06/17 10/06/17 10/06/17 Range/Units 11:23 07:15 05:00 WBC (4.8-10.8) x10^3/uL RBC (4.70-6.10) 10^6/uL Hgb (14.0-18.0) g/dL Hct (42.0-52.0) % MCV (80.0-94.0) fL MCH (27.0-31.0) pg MCHC (32.0-36.0) g/dL RDW (12.0-15.0) % Plt Count (130-450) 10^3/uL MPV (7.4-11.4) fL Sodium 142 (135-145) mmol/L Potassium 3.7 (3.5-5.0) mmol/L Chloride 108 (101-111) mmol/L Carbon Dioxide 25 (21-32) mmol/L Anion Gap 9.0 (6-13) BUN 13 (6-20) mg/dL Creatinine 0.8 (0.6-1.2) mg/dL Estimated GFR (MDRD) 96 (>89) Glucose 90 (70-100) mg/dL POC Whole Bld Glucose 154 H 88 (70 - 100) mg/dL Calcium 8.6 (8.5-10.3) mg/dL 10/06/17 10/05/17 10/05/17 Range/Units 05:00 20:31 16:33 WBC 10.8 (4.8-10.8) x10^3/uL RBC 3.85 L (4.70-6.10) 10^6/uL Hgb 11.5 L (14.0-18.0) g/dL Hct 34.0 L (42.0-52.0) % MCV 88.3 (80.0-94.0) fL MCH 29.9 (27.0-31.0) pg MCHC 33.9 (32.0-36.0) g/dL RDW 13.6 (12.0-15.0) % Plt Count 258 (130-450) 10^3/uL MPV 8.3 (7.4-11.4) fL Sodium (135-145) mmol/L Potassium (3.5-5.0) mmol/L Chloride (101-111) mmol/L Carbon Dioxide (21-32) mmol/L Anion Gap (6-13) BUN (6-20) mg/dL Creatinine (0.6-1.2) mg/dL Estimated GFR (MDRD) (>89) Glucose (70-100) mg/dL POC Whole Bld Glucose 115 H 97 (70 - 100) mg/dL Calcium (8.5-10.3) mg/dL ABX Reporting Has patient been on IV antibiotics over the past 48 hours?: Yes Assessment/Plan - Problem List (1) Cellulitis of foot, left Impression: Impression: 10/06 consult with ID in , wait for sensitivity study, will followup recommendation for d/c to home, continue current treatment until sensitivity study will plan 6 weeks for IV of antibiotics for pt per Dr. Reaves's recommendation. Pt also is with DM2. per discuss with pharmacy, and current treatment, Antibiotics may have Rocephin 2 grm daily, Vancomycin 1.5mg Q12h for 6 weeks, foster care case manager is planning for that, plan d/c pt for tomorrow with [facility] wound care and IV of antibiotics According to Dr. Reaves, the orthopedic surgeon who is attending to Mr. Bailey, there is some question as to whether or not there is osteoarthritis osteomyelitis in the foot. Despite this, given that there is at least a fracture in the wound has been infected for a lengthy amount of time, we will treat the patient with 6 weeks of IV antibiotics following the surgical debridement today. Patient had a PICC line placed this morning and we are working on arranging for home IV antibiotics at this time. (2) Hypertension Impression: stable The patient has a history of hypertension and takes amlodipine, carvedilol, and losartan at home, and we have continued these while he is inpatient. His blood pressure has been slightly elevated at times but this certainly may be attributed to the pain he has had. (3) Hyperlipidemia Impression: The patient has a history of hyperlipidemia and takes atorvastatin at home. We will continue this while he is inpatient. (4) Type 2 diabetes mellitus Impression: stable, well controlled glucose continue current regimen
--- NOTE | 2017-10-06 16:32 | PROVIDER PROGRESS NOTE ---
Subjective - Prog Note Date Prog Note Date: 10/06/17 Prog Note Time: 16:31 Objective - Vital Signs/Intake & Output Vital Signs: Vital Signs x48h Temp Pulse Resp BP Pulse Ox 10/06/17 16:00 36.9 C 66 18 131/74 H 97 Intake & Output: Intake & Output 10/03/17 10/04/17 10/05/17 10/06/17 23:59 23:59 23:59 23:59 Intake Total 2710 3779.75 5115.50 1460 Output Total 1999 2275 4100 3700 Balance 710 1504.75 1015.50 -2240 - Objective Extremities: positive: Other (wound vac in place. good seal.) Neurologic/Psychiatric: positive: Other - Lab Results Fish Bones: 10/06/17 05:00 10/06/17 05:00 Other Labs: Lab Results x24hrs 10/06/17 10/06/17 10/06/17 Range/Units 16:27 11:23 07:15 WBC (4.8-10.8) x10^3/uL RBC (4.70-6.10) 10^6/uL Hgb (14.0-18.0) g/dL Hct (42.0-52.0) % MCV (80.0-94.0) fL MCH (27.0-31.0) pg MCHC (32.0-36.0) g/dL RDW (12.0-15.0) % Plt Count (130-450) 10^3/uL MPV (7.4-11.4) fL Sodium (135-145) mmol/L Potassium (3.5-5.0) mmol/L Chloride (101-111) mmol/L Carbon Dioxide (21-32) mmol/L Anion Gap (6-13) BUN (6-20) mg/dL Creatinine (0.6-1.2) mg/dL Estimated GFR (MDRD) (>89) Glucose (70-100) mg/dL POC Whole Bld Glucose 102 H 154 H 88 (70 - 100) mg/dL Calcium (8.5-10.3) mg/dL 10/06/17 10/06/17 10/05/17 Range/Units 05:00 05:00 20:31 WBC 10.8 (4.8-10.8) x10^3/uL RBC 3.85 L (4.70-6.10) 10^6/uL Hgb 11.5 L (14.0-18.0) g/dL Hct 34.0 L (42.0-52.0) % MCV 88.3 (80.0-94.0) fL MCH 29.9 (27.0-31.0) pg MCHC 33.9 (32.0-36.0) g/dL RDW 13.6 (12.0-15.0) % Plt Count 258 (130-450) 10^3/uL MPV 8.3 (7.4-11.4) fL Sodium 142 (135-145) mmol/L Potassium 3.7 (3.5-5.0) mmol/L Chloride 108 (101-111) mmol/L Carbon Dioxide 25 (21-32) mmol/L Anion Gap 9.0 (6-13) BUN 13 (6-20) mg/dL Creatinine 0.8 (0.6-1.2) mg/dL Estimated GFR (MDRD) 96 (>89) Glucose 90 (70-100) mg/dL POC Whole Bld Glucose 115 H (70 - 100) mg/dL Calcium 8.6 (8.5-10.3) mg/dL 10/05/17 Range/Units 16:33 WBC (4.8-10.8) x10^3/uL RBC (4.70-6.10) 10^6/uL Hgb (14.0-18.0) g/dL Hct (42.0-52.0) % MCV (80.0-94.0) fL MCH (27.0-31.0) pg MCHC (32.0-36.0) g/dL RDW (12.0-15.0) % Plt Count (130-450) 10^3/uL MPV (7.4-11.4) fL Sodium (135-145) mmol/L Potassium (3.5-5.0) mmol/L Chloride (101-111) mmol/L Carbon Dioxide (21-32) mmol/L Anion Gap (6-13) BUN (6-20) mg/dL Creatinine (0.6-1.2) mg/dL Estimated GFR (MDRD) (>89) Glucose (70-100) mg/dL POC Whole Bld Glucose 97 (70 - 100) mg/dL Calcium (8.5-10.3) mg/dL Assessment/Plan - Problem List (1) Dog bite of left foot Impression: Cultures are growing GNR. Will await sensitivities. Qualifiers: Encounter type: initial encounter Qualified Code(s): S91.352A - Open bite, left foot, initial encounter; W54.0XXA - Bitten by dog, initial encounter; W54.0XXA - Bitten by dog, initial encounter
[2017-10-06] MEDS: NS W/20 MEQ KCL 1,000 ML IV SCH ×2 (17:26→19:07)
[2017-10-06 20:36] LABS: VANCOMYCIN,TROUGH 18.1 ug/mL (10.0-20.0)
[2017-10-07] MEDS: HYDROmorphone 0.5 MG/0.5 ML SYRINGE IVP PRN ×3 (00:20→13:55)
[2017-10-07] MEDS: SODIUM CHLORIDE FLUSH 0.9% 10 ML SYRINGE IVP PRN ×4 (00:20→05:41)
[2017-10-07] MEDS: SODIUM CHLORIDE FLUSH 0.9% 10 ML SYRINGE IVP SCH ×3 (01:03→17:33)
[2017-10-07] MEDS: AMPICILLIN/SULBACTAM 3 GM in SODIUM CHLORIDE 0.9% MINIBAG 100 ML IV SCH ×3 (02:25→13:47)
[2017-10-07] MEDS: HYDROcod/ACETAM 5/325 MG TABLET PO PRN ×4 (04:45→21:28)
[2017-10-07] MEDS: BACLOFEN 10 MG TABLET PO SCH ×3 (05:40→21:28)
[2017-10-07] MEDS: PANTOPRAZOLE 40 MG VIAL IVP SCH (05:47)
[2017-10-07 06:20] LABS: HGB - HEMOGLOBIN 11.9 g/dL (14.0-18.0); MEAN CORPUSCULAR VOLUME 88.2 fL (80.0-94.0); MEAN PLATELET VOLUME 8.4 fL (7.4-11.4); RED BLOOD COUNT 3.96 10^6/uL (4.70-6.10); RED CELL DISTRIBUTION WIDTH 13.3 % (12.0-15.0); WHITE BLOOD COUNT 11.7 x10^3/uL (4.8-10.8)
[2017-10-07 06:24] LABS: CALCIUM 8.7 mg/dL (8.5-10.3); CREATININE 0.9 mg/dL (0.6-1.2)
[2017-10-07] MEDS ORDERED: POTASSIUM CHLORIDE 20 MEQ TABLET PO ONE (07:49)
[2017-10-07] MEDS: NS W/20 MEQ KCL 1,000 ML IV SCH ×2 (08:12→21:28)
[2017-10-07] MEDS: INSULIN ASPART 300 UNIT/3 ML PEN SUBQ SCH ×4 (09:14→21:29)
[2017-10-07] MEDS: POLYETHYLENE GLYCOL 3350 17 GM PACKET PO SCH (09:15)
[2017-10-07] MEDS: amLODIPine 5 MG TABLET PO SCH ×2 (09:23→21:28)
[2017-10-07] MEDS: CARVEDILOL 3.125 MG TABLET PO SCH ×2 (09:23→21:28)
[2017-10-07] MEDS: SACCHAROMYCES BOULARDII 250 MG CAPSULE PO SCH ×2 (09:23→16:01)
[2017-10-07] MEDS: hydroCHLOROthiazide 25 MG TABLET PO SCH (09:24)
[2017-10-07] MEDS: LOSARTAN 50 MG TABLET PO SCH (09:24)
[2017-10-07] MEDS: NAPROXEN 250 MG TABLET PO PRN ×2 (13:55→21:28)
--- NOTE | 2017-10-07 14:32 | PROVIDER PROGRESS NOTE ---
Subjective - Prog Note Date Prog Note Date: 10/07/17 Prog Note Time: 02:30 - Subjective Pt reports feeling: Worse (Increased pain) Objective - Vital Signs/Intake & Output Vital Signs: Vital Signs x48h Temp Pulse Resp BP Pulse Ox 10/07/17 08:00 36.9 C 62 18 137/82 H 94 Intake & Output: Intake & Output 10/04/17 10/05/17 10/06/17 10/07/17 23:59 23:59 23:59 23:59 Intake Total 3779.75 5115.50 2862.5 2180 Output Total 2275 4100 5700 1375 Balance 1504.75 1015.50 -2837.5 805 - Objective Extremities: positive: Other (Wound vac in place. No real change) - Lab Results Fish Bones: 10/07/17 05:41 10/07/17 05:41 Other Labs: Lab Results x24hrs 10/07/17 10/07/17 10/07/17 Range/Units 11:23 07:55 05:41 WBC (4.8-10.8) x10^3/uL RBC (4.70-6.10) 10^6/uL Hgb (14.0-18.0) g/dL Hct (42.0-52.0) % MCV (80.0-94.0) fL MCH (27.0-31.0) pg MCHC (32.0-36.0) g/dL RDW (12.0-15.0) % Plt Count (130-450) 10^3/uL MPV (7.4-11.4) fL Sodium 140 (135-145) mmol/L Potassium 3.4 L (3.5-5.0) mmol/L Chloride 106 (101-111) mmol/L Carbon Dioxide 28 (21-32) mmol/L Anion Gap 6.0 (6-13) BUN 14 (6-20) mg/dL Creatinine 0.9 (0.6-1.2) mg/dL Estimated GFR (MDRD) 84 L (>89) Glucose 94 (70-100) mg/dL POC Whole Bld Glucose 103 H 93 (70 - 100) mg/dL Calcium 8.7 (8.5-10.3) mg/dL Last Dose Date Last Dose Time Vancomycin Trough (10.0-20.0) ug/mL 10/07/17 10/06/17 10/06/17 Range/Units 05:41 20:33 20:20 WBC 11.7 H (4.8-10.8) x10^3/uL RBC 3.96 L (4.70-6.10) 10^6/uL Hgb 11.9 L (14.0-18.0) g/dL Hct 35.0 L (42.0-52.0) % MCV 88.2 (80.0-94.0) fL MCH 30.0 (27.0-31.0) pg MCHC 34.0 (32.0-36.0) g/dL RDW 13.3 (12.0-15.0) % Plt Count 264 (130-450) 10^3/uL MPV 8.4 (7.4-11.4) fL Sodium (135-145) mmol/L Potassium (3.5-5.0) mmol/L Chloride (101-111) mmol/L Carbon Dioxide (21-32) mmol/L Anion Gap (6-13) BUN (6-20) mg/dL Creatinine (0.6-1.2) mg/dL Estimated GFR (MDRD) (>89) Glucose (70-100) mg/dL POC Whole Bld Glucose 102 H (70 - 100) mg/dL Calcium (8.5-10.3) mg/dL Last Dose Date UNKNOWN Last Dose Time UNKNOWN Vancomycin Trough 18.1 (10.0-20.0) ug/mL 10/06/17 Range/Units 16:27 WBC (4.8-10.8) x10^3/uL RBC (4.70-6.10) 10^6/uL Hgb (14.0-18.0) g/dL Hct (42.0-52.0) % MCV (80.0-94.0) fL MCH (27.0-31.0) pg MCHC (32.0-36.0) g/dL RDW (12.0-15.0) % Plt Count (130-450) 10^3/uL MPV (7.4-11.4) fL Sodium (135-145) mmol/L Potassium (3.5-5.0) mmol/L Chloride (101-111) mmol/L Carbon Dioxide (21-32) mmol/L Anion Gap (6-13) BUN (6-20) mg/dL Creatinine (0.6-1.2) mg/dL Estimated GFR (MDRD) (>89) Glucose (70-100) mg/dL POC Whole Bld Glucose 102 H (70 - 100) mg/dL Calcium (8.5-10.3) mg/dL Last Dose Date Last Dose Time Vancomycin Trough (10.0-20.0) ug/mL Assessment/Plan - Problem List (1) Dog bite of left foot Impression: Cultures are now growing Pseudomonas. Will get input from ID for Antibiotic recommendations. Qualifiers: Encounter type: initial encounter Qualified Code(s): S91.352A - Open bite, left foot, initial encounter; W54.0XXA - Bitten by dog, initial encounter; W54.0XXA - Bitten by dog, initial encounter
--- NOTE | 2017-10-07 16:46 | PROVIDER PROGRESS NOTE ---
Subjective - Prog Note Date Prog Note Date: 10/07/17 - Subjective Pt reports feeling: No change Subjective: pt report he he has some pain in his left foot. No fever, chill. I called ID Dr. Gee, she concern beside of pseudomonas aeruginosa, if there are any gram negative bacilli in the culture, she ask me to get the information. I went to lab. Lab staff called [facility] ellison. [facility] answer lab staff, it is not ready yet to have these data. After I have these information, I will call again for recommendation. Current Medications - Current Medications Current Medications: Active Medications Acetaminophen (Tylenol) 650 mg PO Q4HR PRN PRN Reason: Pain or Fever > 38C (100.4F) Hydrocodone Bitart/Acetaminophen (Cowden 5/325) 1 tab PO Q4HR PRN PRN Reason: Pain 5 to 7 Last Admin: 10/07/17 16:02 Dose: 1 tab Amlodipine Besylate (Norvasc) 5 mg PO BID [facility] Last Admin: 10/07/17 09:23 Dose: 5 mg Baclofen (Lioresal) 10 mg PO TID [facility] Last Admin: 10/07/17 13:47 Dose: 10 mg Carvedilol (Coreg) 6.25 mg PO BID [facility] Last Admin: 10/07/17 09:23 Dose: 6.25 mg Hydrochlorothiazide (Hydrodiuril) 25 mg PO DAILY [facility] Last Admin: 10/07/17 09:24 Dose: 25 mg Hydromorphone HCl (Dilaudid Inj Syringe) 0.5 mg IVP Q2H PRN PRN Reason: Pain 8 to 10 Last Admin: 10/07/17 13:55 Dose: 0.5 mg Potassium Chloride/Sodium Chloride (Normal Saline 0.9% W/20 Meq Kcl) 1,000 mls @ 75 mls/hr IV .[id number] [facility] Last Admin: 10/07/17 08:12 Dose: 75 mls/hr Cefepime HCl 2 gm/ Sodium (Chloride) 100 mls @ 200 mls/hr IV BID [facility] Insulin Aspart (Novolog) 1 - 9 unit SUBQ 0800,1200,1700,2100 [facility] PRN Reason: Protocol Last Admin: 10/07/17 11:29 Dose: Not Given Losartan Potassium (Cozaar) 100 mg PO DAILY [facility] Last Admin: 10/07/17 09:24 Dose: 100 mg Naproxen (Naprosyn) 500 mg PO BID PRN PRN Reason: PAIN Last Admin: 10/07/17 13:55 Dose: 500 mg Ondansetron HCl (Zofran Inj) 4 mg IVP Q6HR PRN PRN Reason: Nausea / Vomiting Pantoprazole Sodium (Protonix) 40 mg IVP QDAC [facility] Last Admin: 10/07/17 05:47 Dose: 40 mg Polyethylene Glycol (Miralax) 17 gm PO DAILY [facility] Last Admin: 10/07/17 09:15 Dose: Not Given Saccharomyces Boulardii (Florastor) 250 mg PO BIDWM [facility] Last Admin: 10/07/17 16:01 Dose: 250 mg Sodium Chloride (Normal Saline Flush 0.9%) 10 ml IVP PRN PRN PRN Reason: NEEDED PER PROVIDER ORDERS Last Admin: 10/07/17 05:41 Dose: 10 ml Sodium Chloride (Normal Saline Flush 0.9%) 10 ml IVP 0100,0900,1700 [facility] Last Admin: 10/07/17 05:41 Dose: 10 ml Temazepam (Restoril) 15 mg PO QPM PRN PRN Reason: Insomnia Atorvastatin Calcium 40 mg PO QPM 10/02/17 Baclofen 10 mg PO BID PRN 10/02/17 Carvedilol 6.25 mg PO BID 10/02/17 Losartan Potassium 100 mg PO DAILY 10/02/17 Metformin HCl 500 mg PO BIDWM 10/02/17 Naproxen 500 mg PO BID 10/02/17 amLODIPine [Norvasc] 5 mg PO BID 10/02/17 hydroCHLOROthiazide [Hydrochlorothiazide] 25 mg PO DAILY 10/02/17 oxyCODONE [Roxicodone] 5 mg PO Q6HR PRN 10/02/17 Aspirin 162 mg PO DAILY 10/03/17 Objective - Vital Signs/Intake & Output Reviewed Vital Signs: Yes Vital Signs: Vital Signs x48h Temp Pulse Resp BP Pulse Ox 10/07/17 15:32 36.9 C 60 18 130/75 95 Intake & Output: Intake & Output 10/04/17 10/05/17 10/06/17 10/07/17 23:59 23:59 23:59 23:59 Intake Total 3779.75 5115.50 2862.5 2480 Output Total 1915 4100 5700 1825 Balance 1504.75 1015.50 -2837.5 655 - Objective General Appearance: positive: No acute distress, Alert. negative: Lethargic Eyes Bilateral: positive: Normal inspection, PERRL, No lid inflammation, Conjunctivae nml ENT: positive: ENT inspection nml, Pharynx nml, No signs of dehydration. negative: Purulent nasal drainage, Pharyngeal erythema, Oral lesions Neck: positive: Nml inspection, Thyroid nml, No JVD, Trachea midline. negative : Thyromegaly, Lymphadenopathy (R), Lymphadenopathy (L), Stiff neck, Carotid bruit, Swelling/bruising, Tracheal deviation Respiratory: positive: Chest non-tender, No respiratory distress, Breath sounds nml Cardiovascular: positive: Regular rate & rhythm, No murmur, No gallop. negative : Irregularly irregular, Extrasystoles, Tachycardia, Bradycardia, JVD present, Systolic murmur, Diastolic murmur Peripheral Pulses: 2+ Radial (R), 2+ Radial (L), 2+ Dorsalis pedis (R), 2+ Dorsalis pedis (L) Abdomen: positive: Non-tender, No organomegaly, Nml bowel sounds, No distention. negative: Tenderness, Guarding, Rebound Back: positive: Nml inspection. negative: CVA tenderness (R), CVA tenderness (L ) Skin: positive: Color nml, No rash, Warm, Dry, Puncture wound. negative: Cyanosis, Diaphoresis, Pallor Extremities: positive: Non-tender, Full ROM, Nml appearance. negative: Calf tenderness, Joint swelling, Cruzito's sign/cords Neurologic/Psychiatric: positive: Oriented x3, Motor nml, Sensation nml, Mood/ affect nml. negative: Weakness, Sensory loss, Facial droop, Slurred/abnml speech, Depressed mood/affect - Lab Results Fish Bones: 10/07/17 05:41 10/07/17 05:41 Other Labs: Lab Results x24hrs 10/07/17 10/07/17 10/07/17 Range/Units 16:35 11:23 07:55 WBC (4.8-10.8) x10^3/uL RBC (4.70-6.10) 10^6/uL Hgb (14.0-18.0) g/dL Hct (42.0-52.0) % MCV (80.0-94.0) fL MCH (27.0-31.0) pg MCHC (32.0-36.0) g/dL RDW (12.0-15.0) % Plt Count (130-450) 10^3/uL MPV (7.4-11.4) fL Sodium (135-145) mmol/L Potassium (3.5-5.0) mmol/L Chloride (101-111) mmol/L Carbon Dioxide (21-32) mmol/L Anion Gap (6-13) BUN (6-20) mg/dL Creatinine (0.6-1.2) mg/dL Estimated GFR (MDRD) (>89) Glucose (70-100) mg/dL POC Whole Bld Glucose 109 H 103 H 93 (70 - 100) mg/dL Calcium (8.5-10.3) mg/dL Last Dose Date Last Dose Time Vancomycin Trough (10.0-20.0) ug/mL 10/07/17 10/07/17 10/06/17 Range/Units 05:41 05:41 20:33 WBC 11.7 H (4.8-10.8) x10^3/uL RBC 3.96 L (4.70-6.10) 10^6/uL Hgb 11.9 L (14.0-18.0) g/dL Hct 35.0 L (42.0-52.0) % MCV 88.2 (80.0-94.0) fL MCH 30.0 (27.0-31.0) pg MCHC 34.0 (32.0-36.0) g/dL RDW 13.3 (12.0-15.0) % Plt Count 264 (130-450) 10^3/uL MPV 8.4 (7.4-11.4) fL Sodium 140 (135-145) mmol/L Potassium 3.4 L (3.5-5.0) mmol/L Chloride 106 (101-111) mmol/L Carbon Dioxide 28 (21-32) mmol/L Anion Gap 6.0 (6-13) BUN 14 (6-20) mg/dL Creatinine 0.9 (0.6-1.2) mg/dL Estimated GFR (MDRD) 84 L (>89) Glucose 94 (70-100) mg/dL POC Whole Bld Glucose 102 H (70 - 100) mg/dL Calcium 8.7 (8.5-10.3) mg/dL Last Dose Date Last Dose Time Vancomycin Trough (10.0-20.0) ug/mL 10/06/17 Range/Units 20:20 WBC (4.8-10.8) x10^3/uL RBC (4.70-6.10) 10^6/uL Hgb (14.0-18.0) g/dL Hct (42.0-52.0) % MCV (80.0-94.0) fL MCH (27.0-31.0) pg MCHC (32.0-36.0) g/dL RDW (12.0-15.0) % Plt Count (130-450) 10^3/uL MPV (7.4-11.4) fL Sodium (135-145) mmol/L Potassium (3.5-5.0) mmol/L Chloride (101-111) mmol/L Carbon Dioxide (21-32) mmol/L Anion Gap (6-13) BUN (6-20) mg/dL Creatinine (0.6-1.2) mg/dL Estimated GFR (MDRD) (>89) Glucose (70-100) mg/dL POC Whole Bld Glucose (70 - 100) mg/dL Calcium (8.5-10.3) mg/dL Last Dose Date UNKNOWN Last Dose Time UNKNOWN Vancomycin Trough 18.1 (10.0-20.0) ug/mL ABX Reporting Has patient been on IV antibiotics over the past 48 hours?: Yes Assessment/Plan - Problem List (1) Cellulitis of foot, left Impression: Impression: 10/[address] Gee for recommendation of d/c to home the update culture reveals heavy growth of pseudomonas, and sensitivity to Cefepime switch to Cefepime, wait for recommendation from ID for pt's d/c 10/06 consult with ID in , wait for sensitivity study, will followup recommendation for d/c to home, continue current treatment until sensitivity study will plan 6 weeks for IV of antibiotics for pt per Dr. Reaves's recommendation. Pt also is with DM2. per discuss with pharmacy, and current treatment, Antibiotics may have Rocephin 2 grm daily, Vancomycin 1.5mg Q12h for 6 weeks, counter caser is planning for that, plan d/c pt for tomorrow with [facility] wound care and IV of antibiotics According to Dr. Reaves, the orthopedic surgeon who is attending to Mr. Bailey, there is some question as to whether or not there is osteoarthritis osteomyelitis in the foot. Despite this, given that there is at least a fracture in the wound has been infected for a lengthy amount of time, we will treat the patient with 6 weeks of IV antibiotics following the surgical debridement today. Patient had a PICC line placed this morning and we are working on arranging for home IV antibiotics at this time. (2) Hypertension Impression: stable The patient has a history of hypertension and takes amlodipine, carvedilol, and losartan at home, and we have continued these while he is inpatient. His blood pressure has been slightly elevated at times but this certainly may be attributed to the pain he has had. (3) Hyperlipidemia Impression: The patient has a history of hyperlipidemia and takes atorvastatin at home. We will continue this while he is inpatient. (4) Type 2 diabetes mellitus Impression: stable, well controlled glucose continue current regimen
[2017-10-07] MEDS ORDERED: CEFEPIME 2 GM in SODIUM CHLORIDE 0.9% MINIBAG 100 ML IV SCH (17:00)
[2017-10-08] MEDS: SODIUM CHLORIDE FLUSH 0.9% 10 ML SYRINGE IVP SCH ×2 (00:51→05:32)
[2017-10-08] MEDS: PANTOPRAZOLE 40 MG VIAL IVP SCH (05:32)
[2017-10-08] MEDS: BACLOFEN 10 MG TABLET PO SCH ×2 (05:32→14:07)
[2017-10-08] MEDS: HYDROcod/ACETAM 5/325 MG TABLET PO PRN ×2 (05:32→14:07)
[2017-10-08] MEDS ORDERED: CEFEPIME 2 GM in SODIUM CHLORIDE 0.9% MINIBAG 100 ML IV SCH (06:00)
[2017-10-08] MEDS: INSULIN ASPART 300 UNIT/3 ML PEN SUBQ SCH ×2 (07:37→11:45)
[2017-10-08] MEDS: POLYETHYLENE GLYCOL 3350 17 GM PACKET PO SCH (07:39)
[2017-10-08] MEDS: amLODIPine 5 MG TABLET PO SCH (08:18)
[2017-10-08] MEDS: CARVEDILOL 3.125 MG TABLET PO SCH (08:18)
[2017-10-08] MEDS: LOSARTAN 50 MG TABLET PO SCH (08:18)
[2017-10-08] MEDS: SACCHAROMYCES BOULARDII 250 MG CAPSULE PO SCH (08:18)
[2017-10-08] MEDS: hydroCHLOROthiazide 25 MG TABLET PO SCH (08:18)
--- NOTE | 2017-10-08 09:00 | PROVIDER PROGRESS NOTE ---
Subjective - Prog Note Date Prog Note Date: 10/08/17 Prog Note Time: 08:56 - Subjective Pt reports feeling: Improved Objective - Vital Signs/Intake & Output Vital Signs: Vital Signs x48h Temp Pulse Resp BP Pulse Ox 10/08/17 07:54 36.7 C 58 L 18 134/70 H 96 Intake & Output: Intake & Output 10/05/17 10/06/17 10/07/17 10/08/17 23:59 23:59 23:59 23:59 Intake Total 5115.50 2862.5 4115 713.75 Output Total 4100 5700 2775 1175 Balance 1015.50 -2837.5 1340 -461.25 - Lab Results Fish Bones: 10/07/17 05:41 10/07/17 05:41 Other Labs: Lab Results x24hrs 10/08/17 10/07/17 10/07/17 Range/Units 07:22 20:42 16:35 POC Whole Bld Glucose 90 122 H 109 H (70 - 100) mg/dL 10/07/17 Range/Units 11:23 POC Whole Bld Glucose 103 H (70 - 100) mg/dL - Other Results/Comments Other Results/Comments: EXAM: Wound vac in place. Foot: mildly swollen, non tender. N/V ok distally. No lymphangitis. Assessment/Plan - Problem List (1) Foot abscess, left Impression: Cultures growing Pseudomonas, sensitive to multiple antibiotics. Recommend 6 weeks of IV antibiotics due to exposure to MT and fact that he is a diabetic. Wound vac as well. On discharge, follow up in orthopedic clinic for wound check and determine how much longer to have wound vac in 7-10 days.
[2017-10-08 09:04] LABS: BASOPHILS # (AUTO) 0.1 10^3/uL (0.0-0.1); BASOPHILS % (AUTO) 1.1 %; EOSINOPHILS # (AUTO) 0.3 10^3/uL (0.0-0.7); EOSINOPHILS % (AUTO) 2.6 %; HGB - HEMOGLOBIN 12.5 g/dL (14.0-18.0); LYMPHOCYTES # (AUTO) 1.9 10^3/uL (1.5-3.5); LYMPHOCYTES % (AUTO) 18.2 %; MEAN CORPUSCULAR HGB CONC 34.2 g/dL (32.0-36.0); MEAN CORPUSCULAR VOLUME 87.9 fL (80.0-94.0); MEAN PLATELET VOLUME 8.1 fL (7.4-11.4); MONOCYTES # (AUTO) 0.6 10^3/uL (0.0-1.0); MONOCYTES % (AUTO) 6.1 %; NEUTROPHILS # (AUTO) 7.7 10^3/uL (1.5-6.6); PLT - PLATELET COUNT 248 10^3/uL (130-450); RED BLOOD COUNT 4.15 10^6/uL (4.70-6.10); RED CELL DISTRIBUTION WIDTH 13.5 % (12.0-15.0); WHITE BLOOD COUNT 10.7 x10^3/uL (4.8-10.8)
[2017-10-08 09:38] LABS: ALBUMIN 3.5 g/dL (3.2-5.5); ALBUMIN/GLOBULIN RATIO 1.1 (1.0-2.2); BILIRUBIN,TOTAL 0.8 mg/dL (0.2-1.0); CALCIUM 8.8 mg/dL (8.5-10.3); CREATININE 1.1 mg/dL (0.6-1.2); TOTAL PROTEIN 6.7 g/dL (6.7-8.2)
[2017-10-08] MEDS: NS W/20 MEQ KCL 1,000 ML IV SCH (10:58)
--- NOTE | 2017-10-08 14:47 | Discharge Plan ---
Discharge Plan Disposition: Home, Self Care Condition: Poor Prescriptions: Ciprofloxacin HCl [Cipro] 750 mg PO BID #84 tablet Saccharomyces Boulardii [Florastor] 250 mg PO DAILY #15 capsule Diet: Diabetic Activity Restrictions: Activity as Tolerated Shower Restrictions: No (fall precaution) Instruction Topics: Ciprofloxacin tablets, ED Wound Puncture Foot, Closure Wound Vacuum Assisted Additional Instructions or Follow Up instructions: You may follow up your PCP in one week, follow up orthopedics every Wednesday and Wednesday for wound Vac care, follow up [facility] clinic for wound care. ID recommend you take PO Cipro bid for 6-8 weeks. Should your symptoms return or worsen, you may report to physicians when your are in the clinic or you may present ER or call 911 for help. No Smoking: If you smoke, Please STOP! Call for help. Follow-up with: Richard Cruz MD [Primary Care Provider] -
--- NOTE | 2017-10-08 15:10 | DISCHARGE SUMMARY ---
Discharge Summary Discharge Date: 10/08/17 Discharging Provider: MINAYA Primary Care Provider: Dr. Cruz Condition at Discharge: Poor Discharge Disposition: Home, Self Care Discharge Facility Name: home - DIAGNOSES Admission Diagnoses: (1) Cellulitis of foot, left (2) Hypertension (3) Hyperlipidemia (4) Type 2 diabetes mellitus Discharge Diagnoses with Status of Each Condition: (1) Cellulitis of foot, left Dr.Vidia POWELL from called me back, based on final wound culture, and MRI test, she recommend pt take Cipro 750mg PO Bid for 6-8 weeks, Pt should report, if his symptoms return or worsen, to the clinic provider. I also called Dr. Hanks, orthopedics, agree the plan. I also discuss with Dr. Hanks for the wound vac care for pt. every Wednesday and Wednesday, pt go to orthopedics office for wound vac care , and orthopedics provider will determine if pt need further wound vac. (2) Hypertension stable, follow up PCP (3) Hyperlipidemia stable, continue home regimen (4) Type 2 diabetes mellitus stable, continue home regimen, follow up PCP - HPI History of Present Illness: pt was admitted for left foot injury, bited by his own dog. Pt's foot got infected with pseudomonas aerugionsa. MRI of foot reveals a fracture, and erosion from osteomyelitis in the third metatarsal. - HOSPITAL COURSE Hospital Course: pt was admitted for left foot wound with infection. Orthopedics did I/D to pt. Pt had wound vac. Pt was treated with Unasyn and Vancomycin first, then switched to Cefepime according wound culture. After pt's wound culture is back. I called ID Dr. Gee in , and report ID pt had erosion from osteomyelitis in the third metatarsal, would culture shows pseudomonas aerugionsa. ID asked me to call [facility] to confirm the type of bacteria in the culture. We did. ID recommend pt can have Cipro 750 mg Bid PO for 6-8 weeks, report to provider if infection worsen or return. Pt had wound vac which was arranged for wound vac care for d/c. - ALLERGIES Allergies/Adverse Reactions: Allergies Allergy/AdvReac Type Severity Reaction Status Date / Time No Known Drug Allergies Allergy Verified 10/02/17 18:58 - MEDICATIONS Home Medications: Ambulatory Orders Medication Instructions Recorded Confirmed Atorvastatin Calcium 40 mg PO QPM 10/02/17 10/03/17 Baclofen 10 mg PO BID PRN 10/02/17 10/03/17 Carvedilol 6.25 mg PO BID 10/02/17 10/03/17 Losartan Potassium 100 mg PO DAILY 10/02/17 10/03/17 Metformin HCl 500 mg PO BIDWM 10/02/17 10/03/17 Naproxen 500 mg PO BID 10/02/17 10/03/17 amLODIPine [Norvasc] 5 mg PO BID 10/02/17 10/03/17 hydroCHLOROthiazide 25 mg PO DAILY 10/02/17 10/03/17 [Hydrochlorothiazide] oxyCODONE [Roxicodone] 5 mg PO Q6HR PRN 10/02/17 10/03/17 Aspirin 162 mg PO DAILY 10/03/17 10/03/17 Ciprofloxacin HCl [Cipro] 750 mg PO BID #84 tablet 10/08/17 Saccharomyces Boulardii [Florastor] 250 mg PO DAILY #15 capsule 10/08/17 - PHYSICAL EXAM AT DISCHARGE General Appearance: positive: No acute distress, Alert. negative: Lethargic Eyes Bilateral: positive: Normal inspection, PERRL, No lid inflammation, Conjunctivae nml ENT: positive: ENT inspection nml, Pharynx nml, No signs of dehydration. negative: Purulent nasal drainage, Pharyngeal erythema, Oral lesions Neck: positive: Nml inspection, Thyroid nml, No JVD, Trachea midline. negative : Thyromegaly, Lymphadenopathy (R), Lymphadenopathy (L), Stiff neck, Swelling/ bruising, Tracheal deviation Respiratory: positive: Chest non-tender, No respiratory distress, Breath sounds nml. negative: Wheezes, Rales, Rhonchi Cardiovascular: positive: Regular rate & rhythm, No murmur, No gallop. negative : Irregularly irregular, Extrasystoles, Tachycardia, Bradycardia, JVD present, Systolic murmur, Diastolic murmur Peripheral Pulses: positive: 2+ Abdomen: positive: Non-tender, No organomegaly, Nml bowel sounds, No distention. negative: Tenderness, Guarding, Rebound Back: positive: Nml inspection. negative: CVA tenderness (R), CVA tenderness (L ) Skin: positive: Color nml, No rash, Warm, Dry. negative: Cyanosis, Diaphoresis , Pallor Extremities: positive: Non-tender. negative: Calf tenderness, Joint swelling, Cruzito's sign/cords Neurologic/Psychiatric: positive: Oriented x3, Sensation nml, Mood/affect nml. negative: Weakness, Sensory loss, Facial droop, Slurred/abnml speech, Depressed mood/affect - LABS Result Diagrams: 10/08/17 09:00 10/08/17 09:00 - FOLLOW UP Follow Up: You may follow up your PCP in one week, follow up orthopedics every Wednesday and Wednesday for wound Vac care, follow up [facility] clinic for wound care. ID recommend you take PO Cipro bid for 6-8 weeks. Should your symptoms return or worsen, you may report to physicians when your are in the clinic or you may present ER or call 911 for help. - TIME SPENT Time Spent in Discharge (Minutes): 55
[2017-10-08 15:39] VITALS: BP 133/70
== END 2017-10-08 17:00 | disposition home or self-care (01) | DRG 580 ==
LOC: ED 18:53 → MS2 19:57
PROVIDERS: ADMIT Internal Medicine; ATTEND Nurse Practitioner Gerontology
PROC: 0QDP0ZZ Extraction of Left Metatarsal, Open Approach (ICD-10-PCS; principal; 2017-10-03 16:00)
PROC: 02HV33Z Insertion of Infusion Device into Superior Vena Cava, Percutaneous Approach (ICD-10-PCS; 2017-10-04)
DX: M86.172 Other acute osteomyelitis, left ankle and foot (principal); S91.352S Open bite, left foot, sequela; L08.9 Local infection of the skin and subcutaneous tissue, unspecified; L03.116 Cellulitis of left lower limb; B96.5 Pseudomonas (aeruginosa) (mallei) (pseudomallei) as the cause of diseases classified elsewhere; E11.9 Type 2 diabetes mellitus without complications; I10 Essential (primary) hypertension; E78.5 Hyperlipidemia, unspecified
CPT/HCPCS: 10160; 36415; 71045; 71046; 80048; 80053; 80202; 81001; 81003; 83036; 83690; 85025; 85027; 85610; 85651; 86140; 87070; 87086; 87205; 93005; 96365; 96375; 99283; 99285

== ENCOUNTER 2017-12-15 15:27 | Outpatient (CLI) | payer MEDICARE ==
[2017-12-15 16:01] LABS: BASOPHILS # (AUTO) 0.1 10^3/uL (0.0-0.1); BASOPHILS % (AUTO) 1.1 %; EOSINOPHILS # (AUTO) 0.4 10^3/uL (0.0-0.7); EOSINOPHILS % (AUTO) 4.8 %; HGB - HEMOGLOBIN 12.8 g/dL (14.0-18.0); LYMPHOCYTES # (AUTO) 2.2 10^3/uL (1.5-3.5); LYMPHOCYTES % (AUTO) 23.9 %; MEAN CORPUSCULAR HGB CONC 34.6 g/dL (32.0-36.0); MEAN CORPUSCULAR VOLUME 83.9 fL (80.0-94.0); MEAN PLATELET VOLUME 8.5 fL (7.4-11.4); MONOCYTES # (AUTO) 0.9 10^3/uL (0.0-1.0); MONOCYTES % (AUTO) 9.6 %; NEUTROPHILS # (AUTO) 5.5 10^3/uL (1.5-6.6); NEUTROPHILS % (AUTO) 60.6 %; PLT - PLATELET COUNT 194 10^3/uL (130-450); RED BLOOD COUNT 4.39 10^6/uL (4.70-6.10); RED CELL DISTRIBUTION WIDTH 14.5 % (12.0-15.0); WHITE BLOOD COUNT 9.1 x10^3/uL (4.8-10.8)
== END 2017-12-15 15:28 | disposition home or self-care (01) ==
LOC: LAB 15:27
PROVIDERS: ATTEND Orthopaedic Surgery Sports Medicine
DX: L08.9 Local infection of the skin and subcutaneous tissue, unspecified (principal)
CPT/HCPCS: 36415; 85025; 85651; 86140

== ENCOUNTER 2018-04-26 12:03 | Outpatient (CLI) | payer MEDICARE ==
[2018-04-26 18:54] LABS: BASOPHILS # (AUTO) 0.1 10^3/uL (0.0-0.1); BASOPHILS % (AUTO) 0.9 %; EOSINOPHILS # (AUTO) 0.2 10^3/uL (0.0-0.7); EOSINOPHILS % (AUTO) 2.5 %; HGB - HEMOGLOBIN 13.7 g/dL (14.0-18.0); LYMPHOCYTES # (AUTO) 2.1 10^3/uL (1.5-3.5); LYMPHOCYTES % (AUTO) 27.6 %; MEAN CORPUSCULAR HGB CONC 34.9 g/dL (32.0-36.0); MEAN PLATELET VOLUME 9.4 fL (7.4-11.4); MONOCYTES # (AUTO) 0.7 10^3/uL (0.0-1.0); MONOCYTES % (AUTO) 8.9 %; NEUTROPHILS # (AUTO) 4.5 10^3/uL (1.5-6.6); NEUTROPHILS % (AUTO) 60.1 %; PLT - PLATELET COUNT 183 10^3/uL (130-450); RED BLOOD COUNT 4.43 10^6/uL (4.70-6.10); RED CELL DISTRIBUTION WIDTH 13.7 % (12.0-15.0); WHITE BLOOD COUNT 7.5 x10^3/uL (4.8-10.8)
[2018-04-26 19:11] LABS: ALBUMIN 4.3 g/dL (3.2-5.5); ALBUMIN/GLOBULIN RATIO 1.5 (1.0-2.2); ALKALINE PHOSPHATASE 61 IU/L (42-121); ALT ALANINE AMINOTRANSFERASE 29 IU/L (10-60); AST ASPARTATE AMINOTRANSFERASE 26 IU/L (10-42); BILIRUBIN,TOTAL 1.4 mg/dL (0.2-1.0); BUN - BLOOD UREA NITROGEN 22 mg/dL (6-20); CALCIUM 9.7 mg/dL (8.5-10.3); CARBON DIOXIDE - CO2 26 mmol/L (21-32); CHLORIDE 107 mmol/L (101-111); CHOL/HDL RATIO 3.4 (<5.0); CHOLESTEROL 118 mg/dL; GFR - MDRD 74 (>89); GLUCOSE 94 mg/dL (70-100); HDL CHOLESTEROL 35 mg/dL; LDL CHOLESTEROL,CALCULATED 47 mg/dL; LDL/HDL RATIO 1.3 (<3.6); SODIUM 142 mmol/L (135-145); TOTAL PROTEIN 7.2 g/dL (6.7-8.2); VLDL CHOLESTEROL 36 mg/dL
[2018-04-26 20:45] LABS: HB2 TOTAL 14.7 g/dL; HEMOGLOBIN A1C 0.51 g/dL; HEMOGLOBIN A1C % 5.3 % (4.6-6.2)
== END 2018-04-26 12:04 | disposition home or self-care (01) ==
LOC: LAB.WCP 12:03
PROVIDERS: ATTEND Family Medicine
DX: E78.5 Hyperlipidemia, unspecified (principal); R73.09 Other abnormal glucose; Z12.5 Encounter for screening for malignant neoplasm of prostate
CPT/HCPCS: 36415; 80061; 82043; 83036; 83721; G0103; 80053; 84153; 84443; 85025

== ENCOUNTER 2019-03-23 08:22 | Outpatient (CLI) | payer MEDICARE ==
--- NOTE | 2019-03-23 10:21 | Ultrasound Report ---
Reason: AAA Procedure Date: 03/23/2019 Accession Number: [id number] / [id number] Procedure: US - Retroperitoneal Limited CPT Code: Final Report FULL RESULT: EXAM: AORTIC DOPPLER ULTRASOUND EXAM DATE: 03/23/2019 08:47 AM. CLINICAL HISTORY: AAA. COMPARISON: RETROPERITONEAL LIMITED 04/27/2017 8:08 AM. TECHNIQUE: Real-time sonographic imaging of retroperitoneal vascular structures, including color-flow, Doppler flow and spectral analysis was performed by the tin dipper. Multiple representative government relations static images were saved for review. FINDINGS: Aorta: The abdominal aorta was adequately visualized. No evidence for abdominal aortic aneurysm. Ectatic aorta with atherosclerotic changes. Aorta: Proximal: Sagittal AP 2.8 cm. Mid: Transverse 2.6 x 2.8 cm. Distal: Transverse 2.5 x 2.7 cm. Plaque visualized: Yes. Iliacs: Right Iliac: Transverse 1.5 x 1.4 cm. Left Iliac: Transverse 1.5 x 1.6 cm. Iliac Vessels: Iliacs are top normal in size right iliac 1.5 x 1.4 cm; left iliac 1.5 x 1.6 cm. Other: None. IMPRESSION: 1. Ectatic aorta with atherosclerotic changes. No abdominal aortic aneurysm. RADIA
== END 2019-03-23 08:23 | disposition home or self-care (01) ==
LOC: DI 08:22
PROVIDERS: ATTEND Family Medicine
DX: I77.819 Aortic ectasia, unspecified site (principal); I70.0 Atherosclerosis of aorta
CPT/HCPCS: 76775

== ENCOUNTER 2019-05-02 08:57 | Outpatient (CLI) | payer MEDICARE ==
[2019-05-02 12:06] LABS: BASOPHILS # (AUTO) 0.1 10^3/uL (0.0-0.1); EOSINOPHILS # (AUTO) 0.3 10^3/uL (0.0-0.7); EOSINOPHILS % (AUTO) 3.1 %; HGB - HEMOGLOBIN 13.2 g/dL (14.0-18.0); LYMPHOCYTES # (AUTO) 2.1 10^3/uL (1.5-3.5); LYMPHOCYTES % (AUTO) 25.3 %; MEAN CORPUSCULAR HEMOGLOBIN 30.6 pg (27.0-31.0); MEAN CORPUSCULAR HGB CONC 34.6 g/dL (32.0-36.0); MEAN CORPUSCULAR VOLUME 88.6 fL (80.0-94.0); MEAN PLATELET VOLUME 11.3 fL (7.4-11.4); MONOCYTES # (AUTO) 0.9 10^3/uL (0.0-1.0); NEUTROPHILS % (AUTO) 59.2 %; PLT - PLATELET COUNT 178 10^3/uL (130-450); RED BLOOD COUNT 4.31 10^6/uL (4.70-6.10); WHITE BLOOD COUNT 8.4 x10^3/uL (4.8-10.8)
[2019-05-02 12:14] LABS: ALBUMIN 4.1 g/dL (3.2-5.5); ALBUMIN/GLOBULIN RATIO 1.4 (1.0-2.2); ALKALINE PHOSPHATASE 62 IU/L (42-121); ALT ALANINE AMINOTRANSFERASE 26 IU/L (10-60); AST ASPARTATE AMINOTRANSFERASE 20 IU/L (10-42); BUN - BLOOD UREA NITROGEN 22 mg/dL (6-20); CALCIUM 9.2 mg/dL (8.5-10.3); CARBON DIOXIDE - CO2 24 mmol/L (21-32); CHLORIDE 105 mmol/L (101-111); CHOL/HDL RATIO 4.2 (<5.0); CHOLESTEROL 130 mg/dL; CREATININE 1.2 mg/dL (0.6-1.2); GFR - MDRD 60 (>89); GLUCOSE 98 mg/dL (70-100); HDL CHOLESTEROL 31 mg/dL; LDL CHOLESTEROL,CALCULATED 67 mg/dL; LDL/HDL RATIO 2.2 (<3.6); SODIUM 140 mmol/L (135-145); TOTAL PROTEIN 7.1 g/dL (6.7-8.2); VLDL CHOLESTEROL 32 mg/dL
[2019-05-02 12:18] LABS: HB2 TOTAL 13.8 g/dL; HEMOGLOBIN A1C 0.53 g/dL; HEMOGLOBIN A1C % 5.7 % (4.6-6.2)
[2019-05-02 12:20] LABS: CREATININE,URINE 149.9 mg/dL; MICROALBUMIN,URINE 0.9 mg/dL (0-300.0)
== END 2019-05-02 23:59 | disposition home or self-care (01) ==
LOC: LAB.WCP 08:57
PROVIDERS: ATTEND Family Medicine
DX: I71.4 Abdominal aortic aneurysm, without rupture (principal); E78.5 Hyperlipidemia, unspecified; I10 Essential (primary) hypertension; R73.09 Other abnormal glucose
CPT/HCPCS: 36415; 80053; 80061; 82043; 82570; 83036; 83721; 84443; 85025

== ENCOUNTER 2019-12-27 08:00 | Outpatient (CLI) | payer MEDICARE ==
[2019-12-27 11:45] LABS: BASOPHILS # (AUTO) 0.1 10^3/uL (0.0-0.1); BASOPHILS % (AUTO) 0.8 %; EOSINOPHILS # (AUTO) 0.2 10^3/uL (0.0-0.7); EOSINOPHILS % (AUTO) 2.2 %; HGB - HEMOGLOBIN 13.6 g/dL (14.0-18.0); LYMPHOCYTES # (AUTO) 2.4 10^3/uL (1.5-3.5); LYMPHOCYTES % (AUTO) 25.2 %; MEAN CORPUSCULAR HEMOGLOBIN 29.9 pg (27.0-31.0); MEAN CORPUSCULAR HGB CONC 33.8 g/dL (32.0-36.0); MEAN CORPUSCULAR VOLUME 88.4 fL (80.0-94.0); MEAN PLATELET VOLUME 10.9 fL (7.4-11.4); MONOCYTES # (AUTO) 0.9 10^3/uL (0.0-1.0); MONOCYTES % (AUTO) 9.3 %; NEUTROPHILS # (AUTO) 5.9 10^3/uL (1.5-6.6); NEUTROPHILS % (AUTO) 62.3 %; PLT - PLATELET COUNT 202 10^3/uL (130-450); RED BLOOD COUNT 4.55 10^6/uL (4.70-6.10); RED CELL DISTRIBUTION WIDTH 13.1 % (12.0-15.0); WHITE BLOOD COUNT 9.5 x10^3/uL (4.8-10.8)
[2019-12-27 11:46] LABS: ALBUMIN 4.1 g/dL (3.2-5.5); ALBUMIN/GLOBULIN RATIO 1.3 (1.0-2.2); CALCIUM 9.2 mg/dL (8.5-10.3); CREATININE 1.4 mg/dL (0.6-1.2); TOTAL PROTEIN 7.3 g/dL (6.7-8.2)
[2019-12-27 12:56] LABS: HEMOGLOBIN A1c% 5.4 % (4.27-6.07)
== END 2019-12-27 23:59 | disposition home or self-care (01) ==
LOC: LAB.WCP 08:00
PROVIDERS: ATTEND Family Medicine
DX: E78.5 Hyperlipidemia, unspecified (principal); I10 Essential (primary) hypertension
CPT/HCPCS: 36415; 80053; 83036; 84443; 85025

== ENCOUNTER 2020-06-04 08:00 | Outpatient (CLI) | payer MEDICARE ==
[2020-06-04 12:29] LABS: CALCIUM 9.6 mg/dL (8.5-10.3); POTASSIUM 3.8 mmol/L (3.5-5.0)
[2020-06-04 12:34] LABS: ESTIMATED AVERAGE GLUCOSE 108 mg/dL (70-100); HEMOGLOBIN A1c% 5.4 % (4.27-6.07)
[2020-06-04 12:49] LABS: CREATININE,URINE 190.4 mg/dL; MICROALBUM/CREATININE RATIO,UR 6.8 ug/mg (<30.0); MICROALBUMIN,URINE 1.3 mg/dL (0-300.0)
== END 2020-06-04 23:59 | disposition home or self-care (01) ==
LOC: LAB.WCP 08:00
PROVIDERS: ATTEND Family Medicine
DX: I10 Essential (primary) hypertension (principal); R73.01 Impaired fasting glucose
CPT/HCPCS: 36415; 80048; 82043; 82570; 83036

== ENCOUNTER 2020-08-29 08:00 | Outpatient (CLI) | payer MEDICARE ==
[2020-08-29 17:54] LABS: BASOPHILS # (AUTO) 0.1 10^3/uL (0.0-0.1); BASOPHILS % (AUTO) 0.7 %; EOSINOPHILS # (AUTO) 0.3 10^3/uL (0.0-0.7); EOSINOPHILS % (AUTO) 2.9 %; HCT - HEMATOCRIT 42.3 % (42.0-52.0); HGB - HEMOGLOBIN 14.4 g/dL (14.0-18.0); LYMPHOCYTES # (AUTO) 1.9 10^3/uL (1.5-3.5); LYMPHOCYTES % (AUTO) 21.5 %; MEAN CORPUSCULAR HEMOGLOBIN 30.7 pg (27.0-31.0); MEAN CORPUSCULAR VOLUME 90.2 fL (80.0-94.0); MONOCYTES # (AUTO) 0.7 10^3/uL (0.0-1.0); MONOCYTES % (AUTO) 8.6 %; NEUTROPHILS # (AUTO) 5.7 10^3/uL (1.5-6.6); NEUTROPHILS % (AUTO) 66.1 %; PLT - PLATELET COUNT 216 10^3/uL (130-450); RED BLOOD COUNT 4.69 10^6/uL (4.70-6.10); RED CELL DISTRIBUTION WIDTH 13.1 % (12.0-15.0); WHITE BLOOD COUNT 8.6 x10^3/uL (4.8-10.8)
[2020-08-29 18:18] LABS: CHOL/HDL RATIO 3.3 (<5.0); CHOLESTEROL 128 mg/dL; HDL CHOLESTEROL 39 mg/dL; LDL CHOLESTEROL,CALCULATED 43 mg/dL; LDL/HDL RATIO 1.1 (<3.6); TRIGLYCERIDES 228 mg/dL; VLDL CHOLESTEROL 46 mg/dL
== END 2020-08-29 23:59 | disposition home or self-care (01) ==
LOC: LAB.WCP 08:00
PROVIDERS: ATTEND Family Medicine
DX: R73.03 Prediabetes (principal); R97.20 Elevated prostate specific antigen [PSA]; I10 Essential (primary) hypertension
CPT/HCPCS: 36415; 80061; 83721; 84153; 85025

== ENCOUNTER 2021-06-20 09:56 | Outpatient (CLI) | payer MEDICARE ==
[2021-06-20 12:31] LABS: BASOPHILS # (AUTO) 0.1 10^3/uL (0.0-0.1); BASOPHILS % (AUTO) 0.7 %; EOSINOPHILS # (AUTO) 0.4 10^3/uL (0.0-0.7); EOSINOPHILS % (AUTO) 4.3 %; HCT - HEMATOCRIT 41.8 % (42.0-52.0); HGB - HEMOGLOBIN 14.4 g/dL (14.0-18.0); LYMPHOCYTES # (AUTO) 2.2 10^3/uL (1.5-3.5); LYMPHOCYTES % (AUTO) 25.4 %; MEAN CORPUSCULAR HEMOGLOBIN 30.3 pg (27.0-31.0); MEAN CORPUSCULAR HGB CONC 34.4 g/dL (32.0-36.0); MEAN CORPUSCULAR VOLUME 87.8 fL (80.0-94.0); MEAN PLATELET VOLUME 10.9 fL (7.4-11.4); MONOCYTES % (AUTO) 10.8 %; NEUTROPHILS # (AUTO) 5.2 10^3/uL (1.5-6.6); NEUTROPHILS % (AUTO) 58.6 %; PLT - PLATELET COUNT 207 10^3/uL (130-450); RED BLOOD COUNT 4.76 10^6/uL (4.70-6.10); RED CELL DISTRIBUTION WIDTH 13.6 % (12.0-15.0); WHITE BLOOD COUNT 8.8 x10^3/uL (4.8-10.8)
[2021-06-20 12:42] LABS: ALBUMIN 4.3 g/dL (3.2-5.5); ALBUMIN/GLOBULIN RATIO 1.4 (1.0-2.2); ALKALINE PHOSPHATASE 61 IU/L (42-121); ALT ALANINE AMINOTRANSFERASE 57 IU/L (10-60); AST ASPARTATE AMINOTRANSFERASE 33 IU/L (10-42); BUN - BLOOD UREA NITROGEN 25 mg/dL (6-20); CALCIUM 9.6 mg/dL (8.5-10.3); CARBON DIOXIDE - CO2 25 mmol/L (21-32); CHLORIDE 108 mmol/L (101-111); CHOL/HDL RATIO 3.8 (<5.0); CHOLESTEROL 124 mg/dL; CREATININE 1.1 mg/dL (0.6-1.2); GFR - MDRD 66 (>89); GLUCOSE 111 mg/dL (70-100); HDL CHOLESTEROL 33 mg/dL; LDL CHOLESTEROL,CALCULATED 64 mg/dL; LDL/HDL RATIO 1.9 (<3.6); POTASSIUM 3.9 mmol/L (3.5-5.0); SODIUM 142 mmol/L (135-145); TOTAL PROTEIN 7.4 g/dL (6.7-8.2); TRIGLYCERIDES 133 mg/dL; VLDL CHOLESTEROL 27 mg/dL
[2021-06-20 12:52] LABS: THYROID STIMULATING HORMONE 3.36 uIU/mL (0.34-5.60)
[2021-06-20 12:58] LABS: CREATININE,URINE 238.6 mg/dL; MICROALBUM/CREATININE RATIO,UR 17.6 ug/mg (<30.0); MICROALBUMIN,URINE 4.2 mg/dL (0-300.0)
[2021-06-20 16:05] LABS: ESTIMATED AVERAGE GLUCOSE 114 mg/dL (70-100); HEMOGLOBIN A1c% 5.6 % (4.27-6.07)
== END 2021-06-20 23:59 | disposition home or self-care (01) ==
LOC: LAB.N 09:56
PROVIDERS: ATTEND Family Medicine
DX: E11.39 Type 2 diabetes mellitus with other diabetic ophthalmic complication (principal)
CPT/HCPCS: 36415; 80053; 80061; 81599; 82043; 82570; 83036; 83721; 84443; 85025

== ENCOUNTER 2022-03-05 09:55 | Outpatient (CLI) | payer MEDICARE ==
[2022-03-05 12:45] LABS: BASOPHILS # (AUTO) 0.1 10^3/uL (0.0-0.1); BASOPHILS % (AUTO) 0.7 %; CREATININE,URINE 193.7 mg/dL; EOSINOPHILS # (AUTO) 0.4 10^3/uL (0.0-0.7); EOSINOPHILS % (AUTO) 3.8 %; HCT - HEMATOCRIT 42.9 % (42.0-52.0); HGB - HEMOGLOBIN 14.4 g/dL (14.0-18.0); LYMPHOCYTES # (AUTO) 2.5 10^3/uL (1.5-3.5); LYMPHOCYTES % (AUTO) 26.5 %; MEAN CORPUSCULAR HEMOGLOBIN 29.9 pg (27.0-31.0); MEAN CORPUSCULAR HGB CONC 33.6 g/dL (32.0-36.0); MEAN CORPUSCULAR VOLUME 89.2 fL (80.0-94.0); MEAN PLATELET VOLUME 10.6 fL (7.4-11.4); MICROALBUM/CREATININE RATIO,UR 7.7 ug/mg (<30.0); MICROALBUMIN,URINE 1.5 mg/dL (0-300.0); MONOCYTES # (AUTO) 0.9 10^3/uL (0.0-1.0); MONOCYTES % (AUTO) 9.5 %; NEUTROPHILS # (AUTO) 5.6 10^3/uL (1.5-6.6); NEUTROPHILS % (AUTO) 59.1 %; PLT - PLATELET COUNT 220 10^3/uL (130-450); RED BLOOD COUNT 4.81 10^6/uL (4.70-6.10); WHITE BLOOD COUNT 9.5 x10^3/uL (4.8-10.8)
[2022-03-05 13:00] LABS: ALBUMIN/GLOBULIN RATIO 1.2 (1.0-2.2); ALKALINE PHOSPHATASE 74 IU/L (42-121); ALT ALANINE AMINOTRANSFERASE 35 IU/L (10-60); AST ASPARTATE AMINOTRANSFERASE 21 IU/L (10-42); BILIRUBIN,TOTAL 0.7 mg/dL (0.2-1.0); BUN - BLOOD UREA NITROGEN 20 mg/dL (6-20); CALCIUM 9.3 mg/dL (8.5-10.3); CARBON DIOXIDE - CO2 26 mmol/L (21-32); CHLORIDE 105 mmol/L (101-111); CHOL/HDL RATIO 3.8 (<5.0); CHOLESTEROL 125 mg/dL; GFR - MDRD 73 (>89); GLUCOSE 95 mg/dL (70-100); HDL CHOLESTEROL 33 mg/dL; LDL CHOLESTEROL,CALCULATED 62 mg/dL; LDL/HDL RATIO 1.9 (<3.6); POTASSIUM 3.7 mmol/L (3.5-5.0); SODIUM 140 mmol/L (135-145); TOTAL PROTEIN 7.4 g/dL (6.7-8.2); TRIGLYCERIDES 150 mg/dL; VLDL CHOLESTEROL 30 mg/dL
[2022-03-05 13:09] LABS: ESTIMATED AVERAGE GLUCOSE 114 mg/dL (70-100); HEMOGLOBIN A1c% 5.6 % (4.27-6.07)
[2022-03-05 13:15] LABS: THYROID STIMULATING HORMONE 3.08 uIU/mL (0.34-5.60)
== END 2022-03-05 09:56 | disposition home or self-care (01) ==
LOC: LAB.N 09:55
PROVIDERS: ATTEND Physician Assistant
DX: E11.39 Type 2 diabetes mellitus with other diabetic ophthalmic complication (principal); E78.5 Hyperlipidemia, unspecified; N40.1 Benign prostatic hyperplasia with lower urinary tract symptoms; N13.8 Other obstructive and reflux uropathy
CPT/HCPCS: 36415; 80053; 80061; 82043; 82570; 83036; 83721; 84153; 84443; 85025

== ENCOUNTER 2022-07-25 15:24 | Outpatient (CLI) | payer MEDICARE ==
[~2022-07-25 15:24] MED LIST: GADOBUTROL 10 MMOL/10 ML VIAL ONE
[2022-07-25 15:42] LABS: CREATININE 1.3 mg/dL (0.6-1.2)
[2022-07-25] MEDS ORDERED: GADOBUTROL 10 MMOL/10 ML VIAL IVP ONE (18:10)
--- NOTE | 2022-07-28 10:23 | MRI Report ---
PROCEDURE: PELVIS W/WO INDICATIONS: ELEVATED PSA CONTRAST: GADAVIST 9.9 ML TECHNIQUE: Coronal ultra fast SE, axial T1 FSE with fat saturation, 3-plane nonbreath-hold T2 FSE. After the ad ministration of contrast, dynamic axial, delayed axial and coronal ultra fast GE or 2-D spoiled GE wi th fat saturation through the pelvis. Optional diffusion weighted imaging and ADC may be performed. COMPARISON: None. FINDINGS: Image quality: Diffusion weighted and dynamic contrast enhanced images are diagnostic. Prostate: Gland size is 6.4 x 5.4 x 7.1 cm; ellipsoid gland volume is 128 mL. Lesion #1: Size - 0.5 cm. Location - left posterior medial peripheral zone, gland apex (for example ADC images series 9 image 1 7). T2 signal - heterogeneous signal intensity. ADC signal - hypointense on ADC images with corresponding DWI hyperintensity. DCE - negative. AWA - No large volume bulky extraprostatic extension. However, there is long segment abutment of the lesion against the prostate pseudocapsule, difficult to exclude early extraprostatic extension.. Seminal vesicle invasion - absent. PI-RADS: T2 signal - 3; DWI - 3; DCE - negative; PI-RADS: 3. Genitourinary system: Bladder wall thickness is normal. Distal ureters are non distended. Bowel and peritoneum: No pathologic free pelvic fluid. Inferior colon and small bowel loops are nor mal in caliber. Nodes and vessels: No pelvic or inguinal adenopathy by size criteria. Iliac vessels are normal in c aliber. Soft tissues: Right gluteal intramuscular lipoma. Bones: No definite suspicious bony lesions. Lumbar spine fusion changes. IMPRESSION: 1. A 0.5 cm lesion at the left peripheral zone, gland apex, is consistent with PI-RADS category 3. 2. No suspicious lymph nodes identified in the imaged pelvis. Reviewed by: Trever Cortez MD on 07/28/2022 10:22 AM PDT Approved by: Trever Cortez MD on 07/28/2022 10:22 AM PDT Station ID: [id number]
== END 2022-07-25 15:25 | disposition home or self-care (01) ==
LOC: LAB 15:24
PROVIDERS: ATTEND Urology
DX: R97.20 Elevated prostate specific antigen [PSA] (principal)
CPT/HCPCS: 36415; 72197; 82565; 84520; A9585

== ENCOUNTER 2022-08-23 13:32 | Outpatient (CLI) | payer MEDICARE ==
--- NOTE | 2022-08-23 14:16 | Ultrasound Report ---
PROCEDURE: Retroperitoneal INDICATIONS: LOWER URINARY TRACT SX TECHNIQUE: Real-time scanning was performed of the retroperitoneal organs, with image documentation. COMPARISON: None. FINDINGS: Kidneys: Kidneys are normal in size. Right kidney measures 11.6 cm long; left kidney measures 11.3 cm long. Right renal cortical thickness is 1.8 cm; left renal cortical thickness is 2.4 cm. No mor d masses, hydronephrosis.. Bilateral renal cysts are present. Possible nonobstructing left renal kalani culus. Bladder: Pre-void bladder volume is 316 mL. Post-void residual is 27 mL. Pre-void images demonstra te no intraluminal masses or stones. On pre-void images, bilateral ureteral jets are noted with colo r Doppler interrogation. (Of note, ureteral jets may not be detectable in up to 25% of cases due to insufficient differences in specific gravity between ureteral and bladder urine). Prostate is enlarg ed. Miscellaneous: No free abdominal fluid. IMPRESSION: 1. No hydronephrosis. 2. Possible nonobstructing left renal calculus. Reviewed by: Gerard Mcfadden MD on 08/23/2022 2:15 PM PDT Approved by: Gerard Mcfadden MD on 08/23/2022 2:15 PM PDT Station ID: [id number]
== END 2022-08-23 13:33 | disposition home or self-care (01) ==
LOC: DI 13:32
PROVIDERS: ATTEND Urology
DX: R79.9 Abnormal finding of blood chemistry, unspecified (principal); R39.9 Unspecified symptoms and signs involving the genitourinary system
CPT/HCPCS: 36415; 80048

== ENCOUNTER 2022-08-23 14:12 | Outpatient (CLI) | payer MEDICARE ==
[2022-08-23 14:30] LABS: CALCIUM 9.2 mg/dL (8.5-10.3); CREATININE 1.1 mg/dL (0.6-1.2); POTASSIUM 3.6 mmol/L (3.5-5.0)
== END 2022-08-23 14:13 | disposition home or self-care (01) ==
LOC: LAB 14:12
PROVIDERS: ATTEND Urology
DX: R39.9 Unspecified symptoms and signs involving the genitourinary system (principal); R79.9 Abnormal finding of blood chemistry, unspecified
CPT/HCPCS: 36415; 80048

== ENCOUNTER 2023-03-02 15:26 | Outpatient (CLI) | payer MEDICARE | END 2023-03-02 15:27 | disposition home or self-care (01) | LOC: LAB.N 15:26 | PROVIDERS: ATTEND Physician Assistant Medical | DX: R97.20 Elevated prostate specific antigen [PSA] (principal) | CPT/HCPCS: 36415; 84153 ==

== ENCOUNTER 2023-07-05 10:06 | Outpatient (CLI) | payer MEDICARE ==
[2023-07-05 12:12] LABS: BASOPHILS # (AUTO) 0.1 10^3/uL (0.0-0.1); BASOPHILS % (AUTO) 1.1 %; EOSINOPHILS # (AUTO) 0.5 10^3/uL (0.0-0.7); EOSINOPHILS % (AUTO) 4.7 %; HCT - HEMATOCRIT 43.6 % (42.0-52.0); HGB - HEMOGLOBIN 14.6 g/dL (14.0-18.0); LYMPHOCYTES # (AUTO) 2.4 10^3/uL (1.5-3.5); LYMPHOCYTES % (AUTO) 25.7 %; MEAN CORPUSCULAR HEMOGLOBIN 29.4 pg (27.0-31.0); MEAN CORPUSCULAR HGB CONC 33.5 g/dL (32.0-36.0); MEAN CORPUSCULAR VOLUME 87.7 fL (80.0-94.0); MONOCYTES # (AUTO) 0.8 10^3/uL (0.0-1.0); MONOCYTES % (AUTO) 8.4 %; NEUTROPHILS # (AUTO) 5.7 10^3/uL (1.5-6.6); NEUTROPHILS % (AUTO) 59.8 %; PLT - PLATELET COUNT 211 10^3/uL (130-450); RED BLOOD COUNT 4.97 10^6/uL (4.70-6.10); RED CELL DISTRIBUTION WIDTH 13.3 % (12.0-15.0); WHITE BLOOD COUNT 9.5 x10^3/uL (4.8-10.8)
[2023-07-05 12:27] LABS: ESTIMATED AVERAGE GLUCOSE 117 mg/dL (70-100); HEMOGLOBIN A1c% 5.7 % (4.27-6.07)
[2023-07-05 12:28] LABS: ALBUMIN 4.3 g/dL (3.2-5.5); ALBUMIN/GLOBULIN RATIO 1.5 (1.0-2.2); ALKALINE PHOSPHATASE 65 IU/L (42-121); ALT ALANINE AMINOTRANSFERASE 36 IU/L (10-60); AST ASPARTATE AMINOTRANSFERASE 19 IU/L (10-42); BILIRUBIN,TOTAL 0.9 mg/dL (0.2-1.0); BUN - BLOOD UREA NITROGEN 20 mg/dL (6-20); CARBON DIOXIDE - CO2 25 mmol/L (21-32); CHLORIDE 106 mmol/L (101-111); CHOL/HDL RATIO 3.9 (<5.0); CHOLESTEROL 136 mg/dL; GFR - MDRD 73 (>89); GLUCOSE 102 mg/dL (74-104); HDL CHOLESTEROL 35 mg/dL; LDL CHOLESTEROL,CALCULATED 56 mg/dL; LDL/HDL RATIO 1.6 (<3.6); POTASSIUM 3.8 mmol/L (3.5-4.5); SODIUM 139 mmol/L (135-145); TOTAL PROTEIN 7.1 g/dL (6.4-8.9); TRIGLYCERIDES 227 mg/dL (48-352); VLDL CHOLESTEROL 45 mg/dL
[2023-07-05 12:42] LABS: THYROID STIMULATING HORMONE 3.64 uIU/mL (0.34-5.60)
[2023-07-05 18:02] LABS: CREATININE,URINE 253.5 mg/dL; MICROALBUMIN,URINE 2.8 mg/dL
== END 2023-07-05 10:07 | disposition home or self-care (01) ==
LOC: LAB.N 10:06
PROVIDERS: ATTEND Physician Assistant
DX: I10 Essential (primary) hypertension (principal); E11.39 Type 2 diabetes mellitus with other diabetic ophthalmic complication; E78.5 Hyperlipidemia, unspecified; R97.20 Elevated prostate specific antigen [PSA]
CPT/HCPCS: 36415; 80053; 80061; 82043; 82570; 83036; 83721; 84153; 84443; 85025

== ENCOUNTER 2023-07-14 13:37 | Outpatient (CLI) | payer MEDICARE ==
--- NOTE | 2023-07-14 14:56 | XRAY Report ---
PROCEDURE: Knee 3V RT INDICATIONS: KNEE PAIN, RIGHT TECHNIQUE: 3 views of the knee(s) were acquired. COMPARISON: None. FINDINGS: Bones: Mildly displaced lucency within the lateral patella with anterior fragment is present. No tata picious bony lesions. Moderate to severe lateral and moderate medial patellofemoral compartment narro wing. Particular osteophytes are present without erosions. Soft tissues: Moderate knee joint effusion. No suspicious soft tissue calcifications or masses. IMPRESSION: Mildly displaced lateral patellar lucency with anterior fragment consistent with fracture. Overall ap pearance appears remote. However, there is presence of effusion and recommend correlation of point te nderness as otherwise acute/subacute fracture should be considered. Reviewed by: Gladys Diaz MD on 07/14/2023 2:54 PM PDT Approved by: Gladys Diaz MD on 07/14/2023 2:54 PM PDT Station ID: [id number]
== END 2023-07-14 13:38 | disposition home or self-care (01) ==
LOC: DI.N 13:37
PROVIDERS: ATTEND Physician Assistant
DX: R93.6 Abnormal findings on diagnostic imaging of limbs (principal); M25.461 Effusion, right knee

== ENCOUNTER 2023-09-28 14:23 | Outpatient (CLI) | payer MEDICARE | END 2023-09-28 14:24 | disposition home or self-care (01) | LOC: LAB.N 14:23 | PROVIDERS: ATTEND Physician Assistant Medical | DX: R97.20 Elevated prostate specific antigen [PSA] (principal); R39.9 Unspecified symptoms and signs involving the genitourinary system | CPT/HCPCS: 36415; 84153 ==